=== PATIENT | male | born 1980 | race Caucasian/White ===

== ENCOUNTER 2020-03-08 01:41 | Emergency (ER) | payer MEDICAID, SELFPAY ==
[2020-03-08 02:15] VITALS: BP 114/69; PULSE 98; RESP 20; O2SAT 93; BMI 25.0
--- NOTE | 2020-03-08 02:40 | PC.NURSE ---
PT AMBULATORY WITH STEADY GAIT, BBS CLEAR AND EQUAL. PT IN NO DISTRESS, UNABLE TO SIT STILL. PT ADMITS TO DAILY OPIATE USE AND THINKS THERE WAS SOMETHING IN THE CRACK HE SMOKED.
[2020-03-08 02:46] LABS: Amphetamine Screen Urine Not Detected (Not Detect); Barbiturates, Urine Not Detected (Not Detect); Benzodiazepines Screen Urine Not Detected (Not Detect); Cannabinoid Screen Urine Not Detected (Not Detect); Cocaine Screen Urine POSITIVE (Not Detect); Opiate Screen Urine POSITIVE (Not Detect); Phencyclidine Screen Urine Not Detected (Not Detect)
--- NOTE | 2020-03-08 02:50 | PC.NURSE ---
PT ASKING TO LEAVE, WALKED OVER TO SECURITY OFFICE LOOKING FOR CLOTHES. PT REFUSING EKG.
--- NOTE | 2020-03-09 03:26 | ED.SOB ---
HPI - SOB/Dyspnea General Chief Complaint: Dyspnea Stated Complaint: Sob Time Seen by Provider: 03/08/20 02:34 Source: patient and EMS Mode of arrival: EMS History of Present Illness HPI Narrative: This is a 40-year-old male who smoked crack approximately 3 hours ago but then woke up complaining of being short of breath which prompted the father to call EMS. Patient denies any recent fevers, chills, recent travel, chest pain /palpitations but states he has a sensation that he cannot get enough air. Related Data Allergies Allergy/AdvReac Type Severity Reaction Status Date / Time No Known Allergies Allergy Verified 03/08/20 02:21 [No Known Allergies*] Review of Systems Review of Systems: pertinent positives and negatives as stated in HPI 10 point review systems is otherwise negative. [facility] Past Medical History Source: nursing notes reviewed Medical History Asthma Social History Social History Advance Directives: No Physical Exam Vital Signs: Vital Signs: Body Mass Index 25.0 VITAL SIGNS: Reviewed. PHYSICAL EXAM NOT COMPLETED DUE TO PATIENT REQUESTING TO LEAVE Course Course Course Narrative: this is a 40-year-old male with history and clinical presentation consistent with possible asthma exacerbation but doubt PE or cardiac ischemia. Unfortunately, patient requested to leave against medical advice despite attempts made to encourage compliance with further workup given his symptoms in combination with review of vital signs which showed an SpO2 of 93%. MDM - SOB/Dyspnea Lab Data Labs: Lab Results 03/08/20 Range/Units 02:24 Urine Opiates Screen POSITIVE H (Not Detect) Ur Barbiturates Screen Not Detected (Not Detect) Ur Phencyclidine Scrn Not Detected (Not Detect) Ur Amphetamines Screen Not Detected (Not Detect) U Benzodiazepines Scrn Not Detected (Not Detect) Urine Cocaine Screen POSITIVE H (Not Detect) U Marijuana (THC) Screen Not Detected (Not Detect) Discharge Plan Discharge Clinical Impression: Breath shortness Patient Disposition: Left Against Medical Advice Instructions: Polysubstance Abuse (ED) Additional Instructions: The patient and/or family acknowledge understanding of results (as applicable), diagnosis, treatment plan, need for follow up, and symptoms that should prompt a return to the emergency room. Please do not hesitate to return at any time for evaluation. Referrals: Physician,Unknown [Primary Care Provider] - 2 days Discharge Date/Time: 03/08/20 02:51
== END 2020-03-08 02:51 | disposition left against medical advice (07) ==
PROVIDERS: Emergency Provider Student in an Organized Health Care Education/Training Program
DX: R06.02 Shortness of breath (principal); F19.10 Other psychoactive substance abuse, uncomplicated; J45.909 Unspecified asthma, uncomplicated
CPT/HCPCS: 80307; 99282; 99283

== ENCOUNTER 2020-11-01 18:10 | Emergency (ER) | payer MEDICAID, SELFPAY ==
--- NOTE | ~2020-11-01 | XR_ITS ---
EXAMINATION: XR CHEST CLINICAL INFORMATION: Shortness of breath COMPARISON: None TECHNIQUE: 2 views of the chest were obtained. FINDINGS: No significant abnormality is noted involving the heart, lungs, mediastinum, bony thorax or soft tissues. XR/XR chest 2V IMPRESSION: No acute pulmonary disease.
[2020-11-01 18:31] VITALS: BP 134/84; BP 147/80; PULSE 85; PULSE 90; RESP 16; TEMP 36.7; O2SAT 95; BMI 25.8
--- NOTE | 2020-11-01 18:33 | ECG_ITS ---
Test Reason : CP Blood Pressure : / mmHG Vent. Rate : 088 BPM Atrial Rate : 088 BPM P-R Int : 190 ms QRS Dur : 098 ms QT Int : 386 ms P-R-T Axes : 073 071 062 degrees QTc Int : 467 ms Normal sinus rhythm Possible Left atrial enlargement Borderline ECG When compared with ECG of 07-FEB-2019 03:30, Nonspecific T wave abnormality no longer evident in Lateral leads Referred By: Jelly Russo Electronically Signed By:ALFRED BRITO MD
--- NOTE | 2020-11-01 18:33 | ED.OVERDOSE ---
HPI - Overdose General Chief Complaint: ETOH/Substance Use Stated Complaint: drug use, cp Source: patient and EMS Mode of arrival: EMS Limitations: no limitations History of Present Illness HPI Narrative: 40-year-old male presents via EMS for overdose. States that he has been using alcohol cocaine, heroin, and marijuana on regular basis. He is requesting detox. He did not require Narcan in the field. He does state to have some chest pain which he feels is related to his cocaine use. MD complaint: accidental overdose Onset (ago): hour(s) (Within the hour of arrival) Timing confirmed by: other Context: Accidental Overdose: wanted to get high Treatments Prior to Arrival: none Related Data Allergies Allergy/AdvReac Type Severity Reaction Status Date / Time No Known Allergies Allergy Verified 03/08/20 02:21 [No Known Allergies*] Review of Systems Review of Systems: Constitutional: No Fever, No Chills ENT/Mouth: No sore throat, No Rhinorrhea Eyes: No Eye Pain, No Swelling, No Redness Cardiovascular: No Chest Pain, No SOB Respiratory: No Cough, No Sputum Gastrointestinal: No Nausea, No Vomiting, No Diarrhea, No abdominal Pain Genitourinary: No Dysuria, No Hematuria Musculoskeletal: No joint pain, No Myalgias, No Joint Swelling Skin: No Skin Lesions, No rash Neuro: No Weakness, No Numbness, No Loss of Consciousness, No Dizziness, No Headache Psych: Positive polysubstance abuse, No Anxiety, No Depression, No SI/HI/AH/VH Heme/Lymph: No Bruising, No Bleeding,No Lymphadenopathy Endocrine: No Polyuria, No Polydipsia Yes all other systems are reviewed and are negative [facility] Past Medical History Attestation statement: The following information was validated with the patient. Source: old records reviewed Medical History Asthma Substance abuse Social History Social History Alcohol intake: current Patient Tobacco Use Status: Current everyday Tobacco user Use of substances other than those prescribed or required for medical reasons: Yes Substance Use Type: Crack/Cocaine, Heroin and Marijuana Advance Directives: No Advance Directives Information Provided: No Physical Exam Vital Signs: Vital Signs: Last Vital Signs Temp 98.0 F 11/01/20 18:31 Pulse 86 11/01/20 21:44 Resp 16 11/01/20 21:44 BP 134/78 11/01/20 21:44 Pulse Ox 98 11/01/20 21:44 Body Mass Index 25.8 Appearance: Alert. Oriented X3. No acute distress. Eyes: Pupils equal, round and reactive to light. ENT: Pharynx normal. Neck: Normal inspection. Neck supple. CVS: Normal heart rate and rhythm. Pulses normal. Respiratory: No respiratory distress. Breath sounds normal. Abdomen: Soft and nontender. Skin: Skin warm and dry. Normal skin color. Normal skin turgor. Extremities: No lower extremity edema. Neuro: No motor deficit. No sensory deficit. Course Course Course Narrative: 40-year-old male presents via EMS for overdose on cocaine, heroin, and alcohol use. States that he is looking for detox, did not require Narcan in the field. Patient is alert oriented x4, answering questions politely and appropriately, appears to be apologetic and remorseful. Will order lab values, D , and EKG. EKG is normal sinus. No indication of ST elevation or depression, no need for troponins at this time. Did give Ativan 2 mg for withdrawal symptoms. Chest x-rays negative for acute findings requiring emergent intervention. 9:29 p.m., detox bed found, patient willing to go. Discharge to detox. MDM - Overdose Differential Diagnosis Differential diagnosis: Likely cocaine intoxication and drug overdose Medical Records Attestation: I reviewed the patient's medical records. Lab Data Attestation: I reviewed the patient's lab results. Labs: Lab Results 11/01/20 Range/Units 18:40 Urine Opiates Screen POSITIVE H (Not Detect) Ur Barbiturates Screen Not Detected (Not Detect) Ur Phencyclidine Scrn Not Detected (Not Detect) Ur Amphetamines Screen Not Detected (Not Detect) U Benzodiazepines Scrn Not Detected (Not Detect) Urine Cocaine Screen POSITIVE H (Not Detect) U Marijuana (THC) Screen Not Detected (Not Detect) Imaging Data Chest x-ray: Attestation: I personally reviewed and interpreted this imaging study as follows: Radiologist's impression: EXAMINATION: XR CHEST CLINICAL INFORMATION: Shortness of breath COMPARISON: None TECHNIQUE: 2 views of the chest were obtained. FINDINGS: No significant abnormality is noted involving the heart, lungs, mediastinum, bony thorax or soft tissues. XR/XR chest 2V IMPRESSION: No acute pulmonary disease. ECG Data Attestation: I personally reviewed and interpreted this ECG as follows: ECG interpretation date: 11/01/20 ECG interpretation time: 18:49 Interpretation: Vent. rate 88 BPM WV interval 190 ms QRS duration 98 ms QT/QTc 386/467 ms P-R-T axes 73 71 62 Normal sinus rhythm Possible Left atrial enlargement Borderline ECG When compared with ECG of 07-FEB-2019 03:30, Nonspecific T wave abnormality no longer evident in Lateral leads Discharge Plan Discharge Clinical Impression: Polysubstance abuse Patient Disposition: Home, Self-Care Instructions: Polysubstance Abuse (ED) Additional Instructions: Thank you for considering detox. The recovery advocate is found placement for you tonight. Thank you for choosing this emergency department for evaluation. Please follow-up with primary care physician as needed. Return to the emergency department for any new, concerning, or worsening symptoms. Interventions: ED Discharge Assessment Last Done: 11/01/20 21:35 Discharge Date/Time: 11/01/20 21:58
[2020-11-01] MEDS: LORazepam 1 MG TABLET 2 MG PO (18:58)
[2020-11-01 19:21] LABS: Amphetamine Screen Urine Not Detected (Not Detect); Barbiturates, Urine Not Detected (Not Detect); Benzodiazepines Screen Urine Not Detected (Not Detect); Cannabinoid Screen Urine Not Detected (Not Detect); Cocaine Screen Urine POSITIVE (Not Detect); Opiate Screen Urine POSITIVE (Not Detect); Phencyclidine Screen Urine Not Detected (Not Detect)
[2020-11-01 21:44] VITALS: BP 134/78; PULSE 86; RESP 16; O2SAT 98
== END 2020-11-01 21:58 | disposition home or self-care (01) ==
PROVIDERS: Nurse Practitioner Family; Emergency Provider Internal Medicine
DX: F14.10 Cocaine abuse, uncomplicated (principal); F11.10 Opioid abuse, uncomplicated; F12.10 Cannabis abuse, uncomplicated; R07.9 Chest pain, unspecified
CPT/HCPCS: 71046; 80307; 93005; 99285

== ENCOUNTER 2020-12-09 01:30 | Emergency (ER) | payer MEDICAID, SELFPAY ==
[2020-12-09] VITALS (8 sets, daily range): BP systolic 98–130; BP diastolic 64–80; PULSE 75–110; RESP 12–22; TEMP 37; O2SAT 91–97; BMI 53.7
--- NOTE | 2020-12-09 01:45 | ED.GENADULT ---
HPI - General Adult General Chief complaint: ETOH/Substance Use Stated complaint: SOB AND CHEST PAIN AFTER DRUG USE Time Seen by Provider: 12/09/20 01:43 Source: patient Mode of arrival: EMS History of Present Illness HPI narrative: 40-year-old male brought in by EMS after reportedly smoking crack cocaine all weekend and stating he has not slept in 4 days. In addition, he states that he used drugs just prior to arrival. Otherwise, he denies any shortness of breath, chest pain/palpitations. Related Data Allergies Allergy/AdvReac Type Severity Reaction Status Date / Time No Known Allergies Allergy Verified 03/08/20 02:21 [No Known Allergies*] Review of Systems Review of Systems: Pertinent positives and negatives as stated in HPI 10 point review of systems is otherwise negative. PMFSH Past Medical History Source: nursing notes reviewed Medical History Asthma Substance abuse Social History Social History Alcohol intake: current Patient Tobacco Use Status: Current everyday Tobacco user Substance Use Type: Crack/Cocaine, Heroin and Marijuana Advance Directives: No Advance Directives Information Provided: No Physical Exam Vital Signs: Vital Signs: Last Vital Signs Temp 98.6 F 12/09/20 06:52 Pulse 84 12/09/20 06:52 Resp 13 12/09/20 06:52 BP 109/75 12/09/20 06:52 Pulse Ox 91 L 12/09/20 06:52 Body Mass Index 53.7 VITAL SIGNS: Reviewed. GENERAL: Well developed, well nourished, patient is twitching and moving back and forth, grunting HEAD: Normocephalic/atraumatic EYES: PERRLA, EOMI EARS: Ext canals without abnormality OROPHARYNX: no oral lesions noted, posterior pharynx clear NECK: Supple, no adenopathy LUNGS: Normal breath sounds. No adventitious sounds or accessory muscle use. SpO2<97> CARDIOVASCULAR: Regular rate and rhythm without noted murmurs ABDOMEN: Soft, non-tender, non-distended with bowel sounds. SKIN: Inspection of the skin reveals no rashes NEUROLOGIC: Alert and oriented x 3. Strength and sensation to light touch were grossly intact x 4. Course Course Course Narrative: 40-year-old male with history and clinical presents in view consistent with substance use, suspect some component of PCP. Patient requesting something to help calm him and was provided Ativan with good results. Patient continues to rest comfortably with intermittent episodes/outbursts, but on questioning will answer. Sign-out given to Dr Elizondo. Reevaluation(s) Reevaluation #1: Patient placed in physician observation because the patient needed time to become sober. At the time observation was started the patient's vital signs were stable, patient is intoxicated and now resting comfortably, neuro: Nonfocal, CV RRR, lungs clear Time: 04:43 Medical Decision Making ECG Data Attestation: I personally reviewed and interpreted this ECG as follows: Prior ECG tracings: available for review (11/01/2020 no acute changes on comparison) Interpretation: Number sinus rhythm, HR -98, no STEMI, AL/QRS/QTC. Discharge Plan Discharge Clinical Impression: Substance abuse Patient Disposition: Home, Self-Care Instructions: Polysubstance Abuse (ED) Additional Instructions: Return to the ER for acute worsening of symptoms.
[2020-12-09] MEDS: LORazepam 2 MG/ML VIAL IVPUSH (01:57)
--- NOTE | 2020-12-09 02:02 | PC.NURSE ---
PATIENT THRASHING AROUND ON STRETCHER, ARMS AND LEGS FLAILING, PATIENT REPORTING HE CAN'T CONTROL HIS BODY AFTER SMOKING TO MUCH CRACK COCAINE. PROVIDER GIVING THIS RN VERBAL ORDERS FOR ATIAN IV. PATIENT ASKING FOR MEDICATION TO STOP THE TWITCHING AND SPASMS HE CALLS THEM. PATIENT HAVING AN END TO THE TWITCHING MOVEMENTS ABOUT 5 MINUTES AFTER MEDICATION ADMINISTRATION.
--- NOTE | 2020-12-09 02:23 | PC.NURSE ---
EKG was done at 0219 on patient
--- NOTE | 2020-12-09 04:47 | ECG_ITS ---
Test Reason : DRUG USE Blood Pressure : / mmHG Vent. Rate : 098 BPM Atrial Rate : 098 BPM P-R Int : 194 ms QRS Dur : 098 ms QT Int : 376 ms P-R-T Axes : 079 084 069 degrees QTc Int : 480 ms Normal sinus rhythm Prolonged QT Abnormal ECG When compared with ECG of 01-NOV-2020 18:49, No significant change was found Referred By: Rose Bustos Electronically Signed By:ALFRED BRITO MD
--- NOTE | 2020-12-09 13:03 | PC.NURSE ---
Patient requesting detox, aware. Detox counselor to see patient.
== END 2020-12-09 16:17 | disposition home or self-care (01) ==
PROVIDERS: Emergency Provider Emergency Medicine
DX: F14.10 Cocaine abuse, uncomplicated (principal)
CPT/HCPCS: 93005; 96374; 99284; J2060

== ENCOUNTER → 2024-07-02 09:04 | Outpatient (BNVA) | payer OTHER, SELFPAY | PROVIDERS: Visit Provider Physician Assistant Medical | DX: S39.012A Strain of muscle, fascia and tendon of lower back, initial encounter (principal); X50.1XXA Overexertion from prolonged static or awkward postures, initial encounter; Y93.H1 Activity, digging, shoveling and raking | CPT/HCPCS: 99203; J1885 ==

== ENCOUNTER → 2024-07-05 12:56 | Outpatient (BNVA) | payer OTHER, SELFPAY | PROVIDERS: Visit Provider Physician Assistant Medical | DX: S39.012A Strain of muscle, fascia and tendon of lower back, initial encounter (principal); X50.1XXA Overexertion from prolonged static or awkward postures, initial encounter | CPT/HCPCS: 99213 ==

== ENCOUNTER → 2024-07-12 12:43 | Outpatient (BNVA) | payer OTHER, SELFPAY | PROVIDERS: Visit Provider Physician Assistant Medical | DX: S39.012A Strain of muscle, fascia and tendon of lower back, initial encounter (principal); X50.1XXA Overexertion from prolonged static or awkward postures, initial encounter | CPT/HCPCS: 72110; 99214 ==

== ENCOUNTER 2024-10-02 08:11 | Emergency (ER) | payer MEDICAID, SELFPAY ==
[2024-10-02 08:33] VITALS: BP 132/81; PULSE 105; RESP 18; TEMP 36.8; O2SAT 97; BMI 25.8
--- NOTE | 2024-10-02 08:57 | ED_ITS ---
HPI - Extremity Problem General Chief complaint: Extremity Injury, Upper Stated complaint: Infection R hand/arm Time Seen by Provider: 10/02/24 08:53 Source: patient Mode of arrival: ambulatory Limitations: no limitations History of Present Illness ED Provider: Tawanna Durand PA-C HPI Narrative: 44 yo male presenting to the ER for evaluation of right hand swelling and infection that has been worsening for the last 1 week. He states he got a scrape on the top of his right hand from shoving his hang under a couch looking for something last week. it was a small cut and never healed. He states 2 days ago he was cleaning his crack pipe he accidentally punctured his index finger. He reports the last 2 days his entire hand, including thumb, index and middle fingers have gotten more swollen and painful. The redness and warmth have been traveling up his forearm. He has severe pain when the hand is held down and he needs to hold it up in the air. He reports limited ROM of the index finger due to swelling and pain. He denies fever or chills. He denies IVDA and states he smokes crack daily. He occasionally sniffs dope but never injects. Complaint: extremity pain, extremity swelling, joint swelling and joint pain Onset (ago): day(s) Pain Consistency: constant Location: right and upper extremity Severity scale (1-10): 10 Quality: stabbing and aching Radiation: proximal Relieving factors: elevation Exacerbating factors: range of motion and palpation Associated symptoms: myalgias and arthralgias Related Data Previous Rx's ?Medication ?Instructions ?Recorded cyclobenzaprine 10 mg tablet 10 mg PO BEDTIME PRN muscle spasm 07/02/24 #10 tabs indomethacin 50 mg capsule 50 mg PO BID #60 caps 07/12/24 Allergies Allergy/AdvReac Type Severity Reaction Status Date / Time No Known Allergies Allergy Verified 10/02/24 08:35 [No Known Allergies*] Review of Systems 2 Review of Systems: Yes all other systems are reviewed and are negative [facility] Past Medical History Medical History Asthma Substance abuse Social History Social History Alcohol intake: current Patient Tobacco Use Status: Current everyday Tobacco user Smoked in Last 30 Days: Yes Use of substances other than those prescribed or required for medical reasons: Yes Substance Use Type: Crack/Cocaine Advance Directives: No Advance Directives Information Provided: Yes Physical Exam 2 Vital Signs: Vital Signs: Last Vital Signs Temp 98.2 F 10/02/24 08:33 Pulse 105 H 10/02/24 08:33 Resp 18 10/02/24 08:33 BP 132/81 10/02/24 08:33 Pulse Ox 97 10/02/24 08:33 O2 Del Method Room Air 10/02/24 08:33 BMI result Body Mass Index 25.8 Appearance: Alert. Oriented X3. No acute distress. Restless, anxious Head: normocephalic, atraumatic. Eyes: Pupils equal, round and reactive to light. ENT: Pharynx normal. No tonsillar swelling or exudate. Neck: Normal inspection. Neck supple. CVS: Normal heart rate and rhythm. Pulses normal. Respiratory: No respiratory distress. Breath sounds normal. Abdomen: Soft and nontender. +BS x4 Skin: Skin warm and dry. Normal skin color. Normal skin turgor. No rashes. Extremities: right hand with marked swelling, erythema and warmth or the dorsal aspect with 1.5 irregularly shaped superficial abrasion proximal to the 3rd MCP, over the 3rd MCP and over the PIP of the 2nd digit. 2nd digit sausage digit held in passive partial flexion unable to fully extend or flex. warmth and erythema extend to the mid right forearm on the dorsal aspect. upper arm with a red streak. 2+ radial pulses bilaterally. Neuro/psych: Oriented X 3. No motor deficit. No sensory deficit. CN II-XII intact. Normal speech and cognition. Medical Decision Making Medical Decision Making MDM Narrative: 44-year-old male with history of crack cocaine use, reportedly never intravenously presenting to the ER for evaluation of right hand infection that has been worsening for the last 2 days. Initial wound was 1 week ago reportedly from [place] under a couch. Admits to accidentally stabbing himself in the right index finger while cleaning his crack pipe. Exam is concerning for tenosynovitis or deeper infection with diffuse cellulitis of the entire hand and erythema and warmth radiating up the forearm. There also is concern for lymphangitic spread with a red streak in his right upper arm. He is slightly tachycardic on arrival. Lab workup showing white blood cell count of 17.8. Ordered for vanco and Rocephin for broad coverage, concern for possible MRSA. Patient's belongings went to be search by security and he adamantly refused. He states he needs to bring his belongings to a friend and then is going to come back to the hospital. He is going to leave against medical advice. it was explained to the patient that he needs to be admitted for IV antibiotics, possible surgical intervention or else he runs the risk of worsening infection, sepsis, debility, loss of limb or potential . Patient expressed understanding states he will come back to the hospital once his belongings are taken care of. Differential Diagnosis Differential Diagnoses: The differential diagnosis associated with the presentation includes tenosynovitis, osteomyelitis, cellulitis, abscess Admission/Observation Consideration of admission/observation: Escalation of care including admission/observation considered Lab Data MDM Lab Attestation statement: I reviewed the patient's lab results. Leukocytosis, anemia 10/02/24 09:24 10/02/24 09:24 Labs: Lab Results 10/02/24 Range/Units 09:24 WBC 17.8 H (4.8-10.8) X10*3/uL RBC 4.10 L (4.60-5.80) X10*6/uL Hgb 13.0 L (14.0-18.0) g/dl Hct 36.9 L (42.0-52.0) % MCV 90.0 (80.0-98.0) fL MCH 31.7 (27.0-33.0) pg MCHC 35.2 (31.0-36.0) g/dl RDW 12.4 (11.0-16.0) % Plt Count 191 (160-400) X10*3/uL MPV 10.2 (9.4-12.4) fL Immature Gran % (Auto) 0.5 H (0.0-0.4) % Neut % (Auto) 78.9 H (45-73) % Lymph % (Auto) 14.4 L (20-40) % Twiggs % (Auto) 5.8 (2-11) % Eos % (Auto) 0.2 (0-4) % Baso % (Auto) 0.2 (0-2) % Lymph # (Auto) 2.6 (1.2-4.9) X10*3/uL Twiggs # (Auto) 1.0 (0.1-1.2) X10*3/uL Eos # (Auto) 0.0 (0.0-0.4) X10*3/uL Baso # (Auto) 0.0 (0.0-0.2) X10*3/uL Abs Immat Gran (auto) 0.09 H (0.00-0.03) X10*3/uL Absolute Neuts (auto) 14.1 H (2.0-8.3) x10*3/uL Absolute Nucleated RBC 0.000 (0.0-0.012) X10*3/uL Nucleated RBC % (auto) 0.0 (0.0-0.2) /100WBC External Record Review External record reviewed: Outpatient record, Prior outpatient labs and Prior outpatient radiology Prescription Management I considered prescription management with: Pain Medication and Antibiotic Chronic Conditions Patient?s care impacted by: Other (chronic drug use) Social Determinants Patient?s care significantly limited by Social Determinants of Health including: Alcoholism and drug addiction in family and Other Social Determinant of Health Discharge Plan Discharge Clinical Impression: Tenosynovitis Cellulitis Qualifiers: Site of cellulitis: extremity Site of cellulitis of extremity: upper extremity Laterality: right Qualified Code(s): L03.113 - Cellulitis of right upper limb Patient Disposition: Left Against Medical Advice Prescriptions: No Action cyclobenzaprine 10 mg tablet 10 mg PO BEDTIME PRN (Reason: muscle spasm) Qty: 10 0RF indomethacin 50 mg capsule 50 mg PO BID Qty: 60 3RF Rx Instructions: administer with food or milk Stand Alone Forms: Against Medical Advice Print Language: Kazakh
--- OUTSIDE RECORDS SUMMARY | 2024-10-02 09:20 | XMS_ITS | Patient Health Record ---
Author Organization [facility] Address [address] [place], [place] [id number] Care Team Providers Care Dialysis Patient Care Technician Name Role Phone No, PCP Primary Care Provider Luh Solorio Unavailable [phone] Reason For Referral No Information Social History Sex Assigned At : Social History Observation Description Sex Assigned At Male Encounters Encounter Location Date Provider Diagnosis [facility] [address], [place] [phone] 07/13/2024 Luh Farrell Plan Of Treatment No Information Insurance Providers Payer Name Payer Address Payer Phone Subscriber Number Group Number Insured Name Patient Relationship to Insured Coverage Start Date Coverage End Date Insurance Pending [address] [place] [id number] Jose Kaminski Self - patient is the insured
[2024-10-02 09:31] LABS: MANUAL DIFF FLAG NO
[2024-10-02 09:33] LABS: Basophils Percent Auto 0.2 % (0-2); Eosinophils Percent Auto 0.2 % (0-4); Hematocrit 36.9 % (42.0-52.0); Imm Gran Abs Auto 0.09 X10*3/uL (0.00-0.03); Imm Gran Pct Auto 0.5 % (0.0-0.4); Lymphocytes Absolute Auto 2.6 X10*3/uL (1.2-4.9); Lymphocytes Percent Auto 14.4 % (20-40); Mean Corpuscular HGB Conc 35.2 g/dl (31.0-36.0); Mean Corpuscular Hemoglobin 31.7 pg (27.0-33.0); Mean Platelet Volume 10.2 fL (9.4-12.4); Monocytes Percent Auto 5.8 % (2-11); Neutrophils Absolute Auto 14.1 x10*3/uL (2.0-8.3); Neutrophils Percent Auto 78.9 % (45-73); Platelet Count 191 X10*3/uL (160-400); Red Cell Distribution Width 12.4 % (11.0-16.0); White Blood Count 17.8 X10*3/uL (4.8-10.8)
--- NOTE | 2024-10-02 09:41 | PC.NURSE ---
patient a&ox3, pt was unable to sit still in room, labs drawn, iv inserted, this nurse spoke with security to do a safety search of the patient as he admitted to IV drug use- security was at bedside to go through the patients bag/belongings and pt got defensive admitting that he has stuff in his bag and that he wanted to discharge if we had to take his bag. Attempts to convince patient to stay with the provider and security was not successful. Patient states he understands he can lose his hand if he doesnt get treatment, pt said he didnt think he would need to get admitted so he will bring his bag and belongings to his brothers house and he would come back for treatment. Patient had 10/10 pain, rt had/forearm had 4+ edema, red/hot to touch. Pharmacy was called to return the bag of vanco to the fridge that had been removed. IV was removed from LT AC and pt is leaving against medical advice.
[2024-10-02 09:46] LABS: Appearance Urine Clear; Color Urine Dark Yellow; Glucose Urine UA Negative (Negative); Leukocyte Esterase Urine Negative (Negative); Nitrite Urine Negative (Negative); Specific Gravity - Urine >= 1.030 (1.005-1.025); UMIC TRIGGER UACC YES; Urine Blood Negative (Negative); Urine Ketones 15 mg/dL (Negative); Urine Protein 100 (2+) mg/dL (Neg-Trace)
[2024-10-02 09:48] VITALS: BP 132/81; PULSE 105; RESP 18; TEMP 36.8; O2SAT 97
[2024-10-02 09:53] LABS: Lactic Acid 1.8 mmol/L (0.5-2.0)
[2024-10-02 09:54] LABS: Bacteria Urine None Seen (None Seen); Hyaline Casts Urine 0-2 /LPF (0-2); RBC Urine 0-2 /HPF (0-2); Squamous Epithelial Cell Urine 0-2 /HPF (0-2); WBC Urine 0-5 /HPF (0-5)
[2024-10-02 10:13] LABS: Amphetamine Screen Urine Not Detected (Not Detect); Barbiturates, Urine Not Detected (Not Detect); Benzodiazepines Screen Urine POSITIVE (Not Detect); Buprenorphine Scr Not Detected (Not Detect); Cannabinoid Screen Urine POSITIVE (Not Detect); Cocaine Screen Urine POSITIVE (Not Detect); Fentanyl, urine POSITIVE (Not Detect); Methadone Screen, Urine Not Detected (Not Detect); Opiate Screen Urine POSITIVE (Not Detect); Oxycodone Screen Urine Not Detected (Not Detect); Phencyclidine Screen Urine Not Detected (Not Detect)
[2024-10-02 10:15] LABS: Erythrocyte Sedimentation Rate 38 MM/HR (0-15); Ethanol < 10 mg/dL
[2024-10-02 10:28] LABS: Alanine Aminotransferase 20 U/L (0-40); Albumin Level 4.2 g/dL (3.5-5.0); Aspartate Amino Transferase 25 U/L (5-37); Bilirubin Direct 0.2 mg/dL (0.0-0.5); Bilirubin Total 0.6 mg/dL (0.0-1.0); Blood Urea Nitrogen 17 mg/dL (9-16); Creatinine Clr Calc Pharmacy 100.2; Estimated Glomerular Filt Rate > 60; Glucose Random 144 mg/dL (60-115); Magnesium 2.1 mg/dL (1.6-2.6); Total Protein 7.5 g/dL (6.5-8.0)
[2024-10-02 10:42] LABS: Anion Gap 14 (12-20); Carbon Dioxide 26 mmol/L (22-29); Chloride 96 mmol/L (96-108); Potassium 3.1 mmol/L (3.3-5.1); Sodium 133 mmol/L (135-145)
[2024-10-02 12:53] LABS: Alkaline Phosphatase 72 U/L (39-117)
== END 2024-10-02 09:52 | disposition left against medical advice (07) ==
PROVIDERS: Physician Assistant; Emergency Provider Emergency Medicine
DX: L03.113 Cellulitis of right upper limb (principal); M79.89 Other specified soft tissue disorders; M79.641 Pain in right hand; R00.0 Tachycardia, unspecified; M79.10 Myalgia, unspecified site; F19.10 Other psychoactive substance abuse, uncomplicated; F17.210 Nicotine dependence, cigarettes, uncomplicated; J45.909 Unspecified asthma, uncomplicated; Z53.29 Procedure and treatment not carried out because of patient's decision for other reasons; Z79.899 Other long term (current) drug therapy
CPT/HCPCS: 36415; 80048; 80076; 80307; 81001; 83605; 83735; 85025; 85652; 86140; 87040; 99284

== ENCOUNTER 2024-10-02 22:52 | Inpatient (IN) | payer MEDICAID, SELFPAY ==
--- NOTE | ~2024-10-02 | CT_ITS ---
CLINICAL HISTORY: r o tenosenovytis, IVDU pain, swelling Exam: CT of the right forearm with intravenous contrast. Comparison: None. Findings: Bony alignment of the radius and ulna is anatomic. No fracture or periosteal reaction. No joint effusion at the elbow. No periosteal reaction. Soft tissue induration is seen along the posterior aspect of the elbow in the expected location of the olecranon bursa. Induration is seen within the subcutaneous fat over the radial aspect of the forearm, especially along the mid forearm. No definitive muscle involvement is seen. Diffuse induration within the soft tissues of the dorsal aspect of the wrist, likely involving the extensor tendons. No definitive fluid collection seen within the deep palmar space. Impression: 1. No fracture. 2. Nonspecific induration within the subcutaneous fat of the dorsal aspect of the elbow. This is also seen along the mid to distal aspect of the forearm extending into the wrist. This is nonspecific and suboptimally evaluated with CT scan. MRI with intravenous contrast is considered the imaging modality of choice. Given this limitation, the findings suggest the possibility of tenosynovitis of the extensor tendons at the level of the wrist. This document has been electronically signed by: Gumaro Lee MD on 10/03/2024 02:38:18
[2024-10-02 23:07] VITALS: BP 127/73; PULSE 107; RESP 22; TEMP 37; O2SAT 96; BMI 25.1
--- NOTE | 2024-10-02 23:22 | ED.EXTPRO ---
HPI - Extremity Problem General Chief complaint: Extremity Injury, Upper Stated complaint: infection on right arm was here this morning Time Seen by Provider: 10/02/24 23:13 Source: patient Mode of arrival: ambulatory Limitations: no limitations History of Present Illness ED Provider: Dr. Lana Clarke HPI Narrative: Patient comes to emergency room complaining of an infection in his right hand. Earlier today, patient was seen here in the emergency room. Admission was Suggested and encouraged, but patient refused to be admitted. According to the patient, he admits that he had illicit drugs with him and left the hospital to dispose of them and then came back to the ED knowing that he would get admitted. patient denies fever chills. Patient admits that he uses drugs but never IV. Patient states that he has 2 injuries in his right hand, 1 from cleaning a crack pipe and another 1 from getting scraped in the hand with the wood of a sofa/couch. patient admits that he has been using drugs. patient states that this time he will agree to stay throughout the entire length of hospitalization. Related Data Previous Rx's ?Medication ?Instructions ?Recorded cyclobenzaprine 10 mg tablet 10 mg PO BEDTIME PRN muscle spasm 07/02/24 #10 tabs indomethacin 50 mg capsule 50 mg PO BID #60 caps 07/12/24 Allergies Allergy/AdvReac Type Severity Reaction Status Date / Time No Known Allergies Allergy Verified 10/02/24 23:09 [No Known Allergies*] Review of Systems Review of Systems: Constitutional : No Weight loss, No Fever, No Chills, No Night Sweats, No Fatigue, No Malaise ENT/Mouth : No Hearing loss, No Ear Pain, No Nasal Congestion, No Sinus Pain, No Hoarseness, No sore throat, No Rhinorrhea, No Swallowing Difficulty Eyes: No Eye Pain, No Swelling, No Redness, No Foreign Body, No Discharge, No Vision Changes Cardiovascular : No Chest Pain, No SOB, No Dyspnea on Exertion, No Orthopnea, No Edema, No Palpitations Respiratory : No Cough, No Sputum, No Wheezing, No Smoke Exposure, No Dyspnea Gastrointestinal : No Nausea, No Vomiting, No Diarrhea, No Constipation, No abdominal Pain, No Hematochezia, No Melena Genitourinary : no irregular bleeding, No Dysuria, No Urinary Frequency, No Hematuria, No Urinary Incontinence, No Urgency, No Flank Pain, No Urinary Flow Changes, No Hesitancy Musculoskeletal : Complaining of right arm pain swelling an infection. Skin : No Skin Lesions, No rash Neuro : No Weakness, No Numbness, No Paresthesias, No Loss of Consciousness, No Dizziness, No Headache Psych : No Anxiety/Panic, No Depression, No SI/HI/AH/VH, No Social Issues, Heme/Lymph: No Bruising, No Bleeding,No Lymphadenopathy Endocrine : No Polyuria, No Polydipsia, No Temperature Intolerance [facility] Past Medical History Medical History Substance abuse Asthma Social History Social History Alcohol intake: current Patient Tobacco Use Status: Current everyday Tobacco user Substance Use Type: Crack/Cocaine Advance Directives: No Advance Directives Information Provided: Yes Do you have a plan to hurt others: No Plan Physical Exam Vital Signs: Vital Signs: Last Vital Signs Temp 98.6 F 10/02/24 23:07 Pulse 99 10/03/24 01:16 Resp 14 10/03/24 01:16 BP 113/72 10/03/24 01:16 Pulse Ox 93 10/03/24 01:16 O2 Del Method Room Air 10/03/24 01:16 BMI result Body Mass Index 25.1 Const: Other: Appearance: Alert. Oriented X3. No acute distress. Eyes: Pupils equal, round and reactive to light. ENT: Pharynx normal. Neck: Normal inspection. Neck supple. No lymph nodes noted. No crepitus CVS: Normal heart rate and rhythm. Pulses normal. Normal S1 and S2 Respiratory: No respiratory distress. Breath sounds normal. No Wheezing. No rales Abdomen: Soft and nontender. No rigidity. No distention. Skin: Skin warm and dry. Normal skin color. Normal skin turgor. see extremities below Extremities: No lower extremity edema. No Lacerations. patient's right hand is erythematous, swollen, unable to flex or extend the right index finger, pain to palpation throughout the hand palm and wrist Neuro: Oriented X 3. No motor deficit. No sensory deficit. Moving all extremities. No slurred speech. CN 2 through 12 grossly intact Psych: calm, cooperative, normal affect Course Course Course Narrative: patient had lab work done earlier today given patient's physical exam, tenosynovitis is possible. CT scan pending. Patient is clearly under the influence of substances. Patient received initially p.o. Ativan. However, patient is still moving quite a bit, patient will not hold still for CAT scan. Patient received a dose of IM diazepam. patient was given IV Toradol patient was very anxious, thrashing, patient states that he has never had this reaction before with heroin, believes it was lays. Overall, patient needed Geodon, diphenhydramine, IM diazepam Medications Administered Discontinued Medications Generic Name Dose Route Start Last Admin Trade Name Freq PRN Reason Stop Dose Admin Diazepam 2.5 mg 10/03/24 00:08 10/03/24 00:16 Diazepam 10 Mg/2 Ml Cartridge IM 10/03/24 00:09 2.5 mg STAT STA Administration Diphenhydramine HCl 50 mg 10/03/24 00:32 10/03/24 00:48 Diphenhydramine Hcl 50 Mg/Ml Vial IM 10/03/24 00:33 50 mg ONCE ONE Administration Piperacillin Sod/Tazobactam 50 mls @ 100 mls/hr 10/02/24 23:19 10/03/24 01:49 Sod 3.375 gm/ Sodium Chloride IV 10/02/24 23:48 Infused ONCE ONE Infusion Sodium Chloride 1,000 mls @ 999 mls/hr 10/02/24 23:19 10/03/24 01:13 Ns IVCONT 10/03/24 00:19 999 mls/hr .Q1H1M ONE Administration Vancomycin HCl 2,000 mg in 500 mls @ 250 mls/hr 10/02/24 23:45 10/03/24 01:42 Vancomycin/Ns IV 10/03/24 01:44 250 mls/hr ONCE ONE Administration Protocol Iohexol 85 ml 10/03/24 01:42 10/03/24 01:42 Iohexol 350 Mg/Ml 100 Ml Infus..Btl IV 10/03/24 01:43 85 ml ONCE ONE Administration Ketorolac Tromethamine 30 mg 10/03/24 00:16 10/03/24 01:13 Ketorolac Tromethamine 30 Mg/Ml Vial IVPUSH 10/03/24 00:17 30 mg ONCE ONE Administration Lorazepam 2 mg 10/02/24 23:22 10/02/24 23:58 Lorazepam 1 Mg Tablet PO 10/02/24 23:23 2 mg ONCE ONE Administration Ziprasidone 20 mg 10/03/24 00:32 10/03/24 00:46 Ziprasidone Mesylate 20 Mg Vial IM 10/03/24 00:33 20 mg ONCE ONE Administration Medical Decision Making Medical Decision Making MDM Narrative: my interpretation of labs earlier today, patient's white blood cell count 17.8, lactic 1.8 blood pressure stable, no episodes of hypotension, sepsis not suspected CT scan of the right hand to rule out tenosynovitis has been done, radiology report pending I discussed the patient with Dr. Lei, patient being admitted Critical Care Time Critical Care Time Critical Care Time: Yes Total Critical Care Time: 75 Attestation: I have personally provided critical care time. Time includes review of lab data, radiology results, discussion with consultants, and monitoring for potential decompensation. Intervention performed as documented. Discharge Plan Discharge Clinical Impression: Cellulitis of hand, Adverse drug reaction Patient Disposition: Admitted As Inpatient Prescriptions: No Action cyclobenzaprine 10 mg tablet 10 mg PO BEDTIME PRN (Reason: muscle spasm) Qty: 10 0RF indomethacin 50 mg capsule 50 mg PO BID Qty: 60 3RF Rx Instructions: administer with food or milk Print Language: Malaysian
[2024-10-02] MEDS: LORazepam 1 MG TABLET 2 MG PO (23:58)
[2024-10-03] VITALS (7 sets, daily range): BP systolic 110–134; BP diastolic 63–82; PULSE 80–110; RESP 14–22; TEMP 36.7–37.8; O2SAT 93–96; BMI 26.1
--- OUTSIDE RECORDS SUMMARY | 2024-10-03 00:15 | XMS_ITS | Clinical Summary ---
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 Name Role Phone Unavailable Primary Care Provider Unavailabl e Encounters Date Type Department Care Team Description 07/12/2024 Orders Only [facility] External Provider, [facility] from Last 3 Months Social History Tobacco Use Types Packs/Day Years Used Date Smoking Tobacco: Never Assessed Sex and Gender Information Value Date Recorded Sex Assigned at Male 03/22/2022 10:16 AM EDT Legal Sex Male 10:16 AM EDT Gender Identity Male 03/22/2022 10:16 AM EDT Sexual Orientation Straight 03/22/2022 10 :16 AM EDT Plan of Treatment Health Maintenance Due Date Last Done Comments Depression Screening 1981 Lipid Panel 1981 Alcohol/Substance Use Screening 1993 Tobacco Screening 1993 Family Planning (PISQ) 01/03/1996 Hepatitis B Vaccines (1 of 3 - 19+ 3-dose series) 01/03/2000 COVID-19 Vaccine (3 - 2023-2 5 season) 2024 07/10/2020, 06/12/2020 Influenza Vaccine (#1) 2024 03/09/2018 DTaP/Tdap/Td Vaccines (2 - T d or Tdap) 01/12/2030 01/13/2020 Zoster Vaccines (1 of 2) 2031 RSV Patients and Patients Aged 60 years or older (1 - 1-dose 75+ series) 01/03/2056 HIB Vaccines Aged Out No longer eligi ble based on patient's age to complete this topic HPV Vaccines Aged Out No longer eligi ble based on patient's age to complete this topic Hepatitis A Vaccines Aged Out No long er eligible based on patient's age to complete this topic IPV Vaccines Aged Out No longer eligi ble based on patient's age to complete this topic Meningococcal Vaccine Aged Out No cathy madhavi eligible based on patient's age to complete this topic Pneumococcal Vaccine: Pediatrics (0 to 5 Years) and At-Risk Patients (6 to 49) Years) Aged Out No longer eligible b ased on patient's age to complete this topic RSV under 20 months Aged Out No longe r eligible based on patient's age to complete this topic Rotavirus Vaccines Aged Out No longer eligible based on patient's age to complete this topic Procedures Procedure Name Priority Date/Time Associated Diagnosis Comments XR LUMBAR SPINE COMPLETE 4+ VIEWS Routine 07/12/2024 1:17 PM EST from Last 3 Months Results * XR Lumbar Spine Complete 4+ Views (07/12/2024 1:17 PM EST) Anatomical Region Laterality Modality Spine, L-spine Radiographic Estephania ging 07/12/2024 1:17 PM EST Narrative 07/12/2024 1:47 PM EST ? [facility] ?[address] ?[place] [address] ?XRay Report ? Signed ? Patient: GordyJose ?MR#: [id number] ? : 1980 ?Acct:[id number] ? Age/Sex: 44 / M ?ADM Date: 07/12/24 ? Loc: HO.WC ? Attending Dr: Yodit Tavares PA-C ? Ordering Physician: Yodit Tavares PA-C ?? Date of Service: 07/12/24 ?? Procedure(s): XR lumbar spine 4V min ?? Accession Number(s): [id number] ? cc: [facility]; Yodit Tavares PA-C ? EXAMINATION: ?? XR LUMBOSACRAL SPINE ? CLINICAL INFORMATION: ?? strain of muscle, fascia and tendon of lower back ? COMPARISON: ?? None available. ? TECHNIQUE: ?? 5 views of the lumbar spine, inclusive of of bilateral oblique views, ?? were obtained. ? FINDINGS: ?? No scoliosis. Mildly straightened lordosis. No subluxations. ?? The vertebral bodies and posterior elements are normal. Facets are ?? normally aligned. The disc spaces are preserved and the vertebral ?? alignment is normal. ?? The paraspinal soft tissues are normal. ? XR/XR lumbar spine 4V min ?? IMPRESSION: ?? Normal examination. ? Electronically signed by: ??Luciano Enamorado MD ??07/12/2024 01:44 PM EST RP ? Dictated By: ?Luciano Enamorado MD ? Signed By: ?<Electronically signed by Luciano Enamorado MD in OV> ?07/12/24 1344 ? DD/ 1317 ? TD/TT: 07/12/24 1341 ? Cushion Gum Applicator: ? Procedure Note Coleter, Image - 07/13/[address] [address] XRay Report Signed Patient: Cassy Kaminski#: [id number] : 1980Acct:[id number] Age/Sex: 44 / MADM Date: 07/12/24 Loc: . Attending Dr: Yodit Tavares PA-C Ordering Physician: Yodit Tavares PA-C Date of Service: 07/12/24 Procedure(s): XR lumbar spine 4V min Accession Number(s): [id number] cc: [facility]; Yodit Tavares PA-C EXAMINATION: XR LUMBOSACRAL SPINE CLINICAL INFORMATION: strain of muscle, fascia and tendon of lower back COMPARISON: None available. TECHNIQUE: 5 views of the lumbar spine, inclusive of of bilateral oblique views, were obtained. FINDINGS: No scoliosis. Mildly straightened lordosis. No subluxations. The vertebral bodies and posterior elements are normal. Facets are normally aligned. The disc spaces are preserved and the vertebral alignment is normal. The paraspinal soft tissues are normal. XR/XR lumbar spine 4V min IMPRESSION: Normal examination. Electronically signed by: Luciano Enamorado MD 07/12/2024 01:44 PM [facility] Dictated By: Luciano Enamorado MD Signed By: <Electronically signed by Luciano Enamorado MD in OV> 07/12/24 1344 DD/ 1317 TD/TT: 07/12/24 1341 Cushion Gum Applicator: us [facility] External Provider IMG XR PROCEDURES Edited Result - Final from Last 3 Months
[2024-10-03] MEDS: diazePAM 10 MG/2 ML CARTRIDGE 2.5 MG IM (00:16)
[2024-10-03] MEDS: Ziprasidone Mesylate 20 MG VIAL IM (00:46)
[2024-10-03] MEDS: diphenhydrAMINE HCL 50 MG/ML VIAL IM (00:48)
--- NOTE | 2024-10-03 00:57 | PC.NURSE ---
Pt unable to stay still for IV insertion, involuntary movements, states he is sorry he can't control it. Pt medicated per JUL.
[2024-10-03] MEDS: Piperacillin Sodium/Tazobactam 3.375 GM in 0.9 % Sodium Chloride 50 ML IV ×4 (01:12→19:37)
[2024-10-03] MEDS: 0.9 % Sodium Chloride 1,000 ML 999 ML IVCONT (01:13)
[2024-10-03] MEDS: Ketorolac Tromethamine 30 MG/ML VIAL IVPUSH (01:13)
--- NOTE | 2024-10-03 01:23 | PC.NURSE ---
pt resting in bed, IV placed by supercharge repair supervisor, abx and fluids running. Pt going to CT.
[2024-10-03] MEDS: iohexoL 350 MG/ML 100 ML INFUS..BTL 85 ML IV (01:42)
[2024-10-03] MEDS: vancomycin/NS 2,000 MG/500 ML PLAST..BAG 250 MG IV (01:42)
--- NOTE | 2024-10-03 02:03 | P.HPHOSP_ITS ---
History of Present Illness Date of Service: 10/03/24 Chief Complaint: Hand infection This has a 44-year-old male with pertinent history of polysubstance use disorder who presents to the emergency department for concerns of hand infection. Patient initially presented on the morning of 10/02 to the ER with concerns of right hand swelling and infection. Patient was offered admission for IV antibiotics but left AMA and returned late night 10/02 to the ER. Unable to obtain history from the patient as he is only eye opening to painful stimulus at the time of my evaluation. Patient received diazepam, Benadryl, Geodon, Ativan prior to my evaluation due to agitation. History obtained from ER provider and chart review. Patient admitted that he had illicit drugs with him and he left the hospital against medical advice to dispose time. Patient denied IV use to the ER provider but admitted to using illicit drugs. He states he injured his right hand from cleaning a crack pipe and getting script in the hand with a piece of wood. Unable to obtain review of systems. In the emergency department, patient was found to have leukocytosis and UDS positive for opiates, fentanyl, cocaine, benzos and marijuana. Review of Systems 2 Review of Systems: Yes Unobtainable due to mental status PMFSH Medical History Substance abuse Asthma Pertinent family history: Unable to obtain Social History Alcohol intake: current Patient Tobacco Use Status: Tobacco use Unknown Smoked in Last 30 Days: Yes Use of substances other than those prescribed or required for medical reasons: Yes Substance Use Type: Crack/Cocaine and Heroin Substance Use Frequency: Chronic Longstanding Last Used Substance: Hours (ago) Advance Directives: No Advance Directives Information Provided: Yes Do you have a plan to hurt others: No Plan Nutrition Risks: No Nutritional Risk Meds Allergies Allergy/AdvReac Type Severity Reaction Status Date / Time No Known Allergies Allergy Verified 10/02/24 23:09 [No Known Allergies*] Active Medications: Current Medications Pharmacy Consult (Consult Rx Vancomycin Dosing) 1 each MISCELLANE DAILY PRN PRN Reason: Consult order Physical Exam 2 Vital Signs and Narrative: Vital Signs: Last Vital Signs Temp 98.6 F 10/02/24 23:07 Pulse 99 10/03/24 01:16 Resp 14 10/03/24 01:16 BP 113/72 10/03/24 01:16 Pulse Ox 93 10/03/24 01:16 O2 Del Method Room Air 10/03/24 01:16 BMI result Body Mass Index 25.1 Middle-aged male lying in bed in no distress Neck supple, no JVD Regular rate and rhythm, S1-S2 heard Regular breath sounds bilaterally, no wheezing or crackles appreciated Abdomen soft nontender, no guarding, no rigidity Patient is drowsy and only eye open sleeve painful stimulus and falls back asleep Psych: Lethargic Right hand with significant diffuse swelling over the dorsum of the right hand with associated erythema, warmth, several smaller scabbed lesions on dorsum of the hand (as pictured below) Skin: Other: Results Labs 10/03/24 02:33 10/03/24 02:33 Assessment and Plan (1) Cellulitis of hand: Status: Acute Plan This has a 44-year-old male with pertinent history of polysubstance use disorder who presents to the emergency department for concerns of hand infection. #. Sepsis due to right hand cellulitis with imaging concerns for tenosynovitis: Will admit patient with IV vancomycin and ceftriaxone. Resuscitated with IV crystalloids. Lactic acid and blood culture obtained. Consulted Orthopedic surgery, appreciate assistance #. Polysubstance use disorder: UDS positive for opiates, fentanyl, cocaine, benzos and marijuana. Consulted Addiction Team #. Acute toxic encephalopathy in the setting of above. Monitor for withdrawals. NPO until mentation improves Med rec pending DVT prophylaxis: Lovenox Full code Admit as inpatient and will require two night minimum hospital stay for IV antibiotics (as above), which is not possible in a lesser acute setting. Quality Stroke Does the patient have a stroke diagnosis?: No VTE Prior VTE?: No VTE Risk Level:: Medical - moderate - high VTE Device Contraindication: Treatment Not Indicated VTE Drug Contraindication: N/A - Med Ordered
[2024-10-03 02:39] LABS: Basophils Percent Auto 0.2 % (0-2); Eosinophils Percent Auto 0.2 % (0-4); Hematocrit 32.3 % (42.0-52.0); Hemoglobin 11.3 g/dl (14.0-18.0); Imm Gran Abs Auto 0.05 X10*3/uL (0.00-0.03); Imm Gran Pct Auto 0.3 % (0.0-0.4); Lymphocytes Absolute Auto 1.9 X10*3/uL (1.2-4.9); Lymphocytes Percent Auto 12.5 % (20-40); MANUAL DIFF FLAG NO; Mean Corpuscular Volume 88.7 fL (80.0-98.0); Mean Platelet Volume 10.1 fL (9.4-12.4); Monocytes Percent Auto 6.8 % (2-11); Neutrophils Absolute Auto 11.9 x10*3/uL (2.0-8.3); Platelet Count 173 X10*3/uL (160-400); Red Blood Count 3.64 X10*6/uL (4.60-5.80); Red Cell Distribution Width 12.1 % (11.0-16.0); White Blood Count 14.9 X10*3/uL (4.8-10.8)
[2024-10-03 02:56] LABS: Lactic Acid 0.6 mmol/L (0.5-2.0)
[2024-10-03 03:13] LABS: Alanine Aminotransferase 16 U/L (0-40); Albumin Level 3.5 g/dL (3.5-5.0); Alkaline Phosphatase 56 U/L (39-117); Anion Gap 14 (12-20); Aspartate Amino Transferase 29 U/L (5-37); Bilirubin Total 0.6 mg/dL (0.0-1.0); Blood Urea Nitrogen 15 mg/dL (9-16); Calcium 8.3 mg/dL (8.4-10.2); Carbon Dioxide 24 mmol/L (22-29); Chloride 99 mmol/L (96-108); Creatinine Clr Calc Pharmacy 110.7; Estimated Glomerular Filt Rate > 60; Glucose Random 112 mg/dL (60-115); Potassium 3.3 mmol/L (3.3-5.1); Sodium 134 mmol/L (135-145); Total Protein 6.4 g/dL (6.5-8.0)
[2024-10-03] MEDS: Lactated Ringers 1,000 ML 999 ML IV (04:55)
--- NOTE | 2024-10-03 07:07 | PHA.PROG ---
Admission Date/Time: October 03, 2024 01:53 Indication: sepsis Weight in k.2 kg Adjusted body weight in Kg: [place] body weight in Kg: Obesity Dosing Indication % IBW: Serum Creatinine - Last 168 Hours 10/03/24 02:33 Creatinine 0.86 Estimated CrCl and GFR - Last 168 Hours 10/03/24 02:33 Estim Creat Clear Calc 110.7 Estimated GFR > 60 Vancomycin Loading Dose: 2000 Current Vancomycin Dosing Regimen: 1250 Q12H Vancomycin Monitoring using AUC goal of 400 - 600 range with trough as surrogate marker: 535 Date and Time for next Vancomycin Level to be drawn: 10/04 @1200 Pharmacist Comments on Vancomycin Plan: Vancomycin dosing will take advantage of [employer] as a clinical decision support tool that uses Bayesian modeling to calculate individual patient's pharmacokinetic parameters and forecast the patient's drug concentration time course with the target goal AUC 24 range of 400 - 600 mg/L/hr.
[2024-10-03] MEDS: 0.9 % Sodium Chloride 1,000 ML 125 ML IVCONT ×2 (08:50→18:00)
[2024-10-03] MEDS: 0.9 % Sodium Chloride Flush 3 ML SYRINGE IVFLUSH (08:50)
--- NOTE | 2024-10-03 09:16 | P.CONOP_ITS ---
History of Present Illness HPI Consult date: 10/03/24 Chief complaint: hand infection Narrative: 44-year-old male admitted to the hospital for dorsal left hand infection In the ED, patient reported that he had 2 separate injuries, 1 from wood of a couch and 1 where he was cleaning his crack pipe and it slipped and stabbed him in the hand Patient left AMA yesterday, but returned Today, patient is noted to be very tired Is arousable, but immediately falls back to sleep during course of interview Patient does respond and reports significant pain to the dorsal hand with all movement No other acute events overnight No other acute complaints or concerns at this time PMFSH Past Medical History Medical History Substance abuse Asthma Social History Social History Household Members Other:: unable to assess Housing Other:: unable to assess Alcohol intake: current Patient Tobacco Use Status: Tobacco use Unknown Smoked in Last 30 Days: Yes Frequency of e-Cigarette/Vaping Use: unable to assess Use of substances other than those prescribed or required for medical reasons: Unable to respond Substance Use Type: Crack/Cocaine and Heroin Substance Use Frequency: Chronic Longstanding Last Used Substance: Hours (ago) Advance Directives: No Advance Directives Information Provided: Yes Do you have a plan to hurt others: No Plan Nutrition Risks: No Nutritional Risk Meds Allergies Allergy/AdvReac Type Severity Reaction Status Date / Time No Known Allergies Allergy Verified 10/02/24 23:09 [No Known Allergies*] Active Medications: Current Medications Acetaminophen (Acetaminophen 325 Mg Tablet) 650 mg PO Q6H PRN PRN Reason: Pain, Mild 1-3,fever,headache Calcium Carbonate (Calcium Carbonate 750 Mg Tab.Chew) 750 mg PO Q4H PRN PRN Reason: Heartburn Enoxaparin Sodium (Enoxaparin Sodium 40 Mg/0.4 Ml Syringe) 40 mg SUBCUT Q24H [facility] Vancomycin HCl 1,250 mg/ (Sodium Chloride) 250 mls @ 166.667 mls/hr IV Q12H [facility] Piperacillin Sod/Tazobactam (Sod 3.375 gm/ Sodium Chloride) 50 mls @ 100 mls/hr IV Q6H [facility] Last Admin: 10/03/24 08:59 Dose: 100 mls/hr Sodium Chloride (Ns) 1,000 mls @ 125 mls/hr IVCONT .Q8H [facility] Last Admin: 10/03/24 08:50 Dose: 125 mls/hr Magnesium Hydroxide (Milk Of Magnesia 30 Ml Oral.Susp) 30 ml PO DAILY PRN PRN Reason: Constipation Melatonin (Melatonin 3 Mg Tablet) 6 mg PO BEDTIME PRN PRN Reason: Insomnia Ondansetron HCl (Ondansetron Hcl 4 Mg/2 Ml Vial) 4 mg IVPUSH Q8H PRN PRN Reason: Nausea and Vomiting Pharmacy Consult (Consult Rx Vancomycin Dosing) 1 each MISCELLANE DAILY PRN PRN Reason: Consult order Sodium Chloride (0.9 % Sodium Chloride Flush 3 Ml Syringe) 3 ml IVFLUSH QSHIFT [facility] Last Admin: 10/03/24 08:50 Dose: 3 ml Physical Exam 2 Vital Signs: Vital Signs: Last Vital Signs Temp 98.3 F 10/03/24 07:43 Pulse 82 10/03/24 07:43 Resp 16 10/03/24 07:43 BP 114/82 10/03/24 07:43 Pulse Ox 94 10/03/24 07:43 O2 Del Method Room Air 10/03/24 07:43 BMI result Body Mass Index 26.1 Extrem: Other: Patient is alert, oriented, and in no acute distress. Vascular: Cap refill brisk Pain: Patient demonstrates significant pain response to gentle palpation throughout the entire dorsal palmar hand and dorsal left index finger ROM: No pain with passive extension of the left index finger Left index finger held in a slight degree of flexion Skin: No lacerations or abrasions. General: Significant erythema noted throughout the dorsal left hand and dorsal left index finger No erythema or edema noted of the volar aspect of the hand or digits Redness that was extending into the forearm last night appears to be resolving well Psych: Appears grossly normal Affect normal Attitude cooperative Results Labs 10/03/24 02:33 10/03/24 02:33 Labs: Abnormal lab results 10/03/24 Range/Units 02:33 WBC 14.9 H (4.8-10.8) X10*3/uL RBC 3.64 L (4.60-5.80) X10*6/uL Hgb 11.3 L (14.0-18.0) g/dl Hct 32.3 L (42.0-52.0) % Neut % (Auto) 80.0 H (45-73) % Lymph % (Auto) 12.5 L (20-40) % Abs Immat Gran (auto) 0.05 H (0.00-0.03) X10*3/uL Absolute Neuts (auto) 11.9 H (2.0-8.3) x10*3/uL Sodium 134 L (135-145) mmol/L Calcium 8.3 L D (8.4-10.2) mg/dL Total Creatine Kinase 930 H (38-174) U/L Total Protein 6.4 L (6.5-8.0) g/dL H & H 10/03/24 Range/Units 02:33 Hgb 11.3 L (14.0-18.0) g/dl Hct 32.3 L (42.0-52.0) % All other labs normal. Diagnostic results Wrist/Hand x-ray: report reviewed and image reviewed Wrist/Hand CT: report reviewed and image reviewed Assessment and Plan (1) Cellulitis of hand: Status: Acute (2) Abscess of hand, left: Status: Acute Plan 1. Dorsal left hand infection I educated the patient about the condition. I discussed both operative and nonoperative treatment options. The patient would like to proceed with surgery. The risks and benefits of operative treatment were discussed with the patient and the patient wishes to proceed with surgery. These risks include, but are not limited to, risk of damage to blood vessels, nerves, tendons, infection, recurrence, incomplete relief of preoperative symptoms, persistent pain, possible need for further surgery, and the risks associated with regional blocks and/or anesthesia. Plan is to take the patient to the operating room at some point in the next few weeks for the following procedures: 1. Left hand I and D under general NPO at midnight Continue IV antibiotics Continue with all other recommendations per Medicine Procedures Date of Service Date of Service: 10/03/24
--- NOTE | 2024-10-03 09:44 | MHC.CM.PN ---
EMR REVIEWED, PT ADMITTED W/DIFFUSE CELLULITIS OF LEFT HAND AND ARM, CM ATTEMPTED TO MEET W/PT HOWEVER PT SOUNDLY SLEEPING LIKELY D/T MEDICATION GIVEN D/T AGITATION PER MD REPORTS. INFORMATION FROM ED DOCUMENTS AND H&P. PT LEFT ED AMA ON 10/02 AND REPORTED HE LEFT TO DISPOSE OF DRUGS AND REPORTED USING CRACK COCAINE DAILY PER ED H&P. PT'S TOX SCREEN POSITIVE FOR OPIATES, FENTANYL, COCAINE, BENZOS, COCAINE AND MARIJUANA. BC'S ARE CURRENTLY PENDING. PT MAY NEED SNF IF BC'S COME BACK POSITIVE. CM WILL REVISIT ONCE PT AWAKE. REFERRAL TO FS SENT VIA EMAIL, FS ATTEMPTED TO MEET W/PT HOWEVER UNABLE TO WAKE PT AND WILL REVISIT LATER TODAY.
--- NOTE | 2024-10-03 11:42 | PHA.MEDREC ---
Addendum entered by Davi Carmichael 10/03/24 12:06: reviewed Original Note: Pharmacy Consult ? Medication Reconciliation Pharmacy has completed the medication reconciliation. Spoke with patient and he isn't taking any medications at this time.
--- NOTE | 2024-10-03 12:46 | HO.ADDICTCON ---
History of Present Illness Date of Service: 10/03/2024 Chief Complaint: hand infection Reason for Consult: substance use Sources of Information: chart reviewed HPI Narrative: Patient is a 44 year old male medically admitted with abscess of the hand. Consult requested as patient reported substance use at time of admission. Most information obtained via chart review as patient was difficult to rouse/stay awake when seen by this automatic typewriter inspector. Responds to name, and brief questions, but quickly back to sleep. --overnight he did receive several medications while attempting to have an CT scan due to restlessness. He appears to be resting comfortably and no withdrawal sx noted (yawning, restlessness, or diaphoresis) UDS +fentanyl, benzodiazepines, and cocaine. Admission note states that patient reported smoking crack cocaine, and occasional IN use of heroin/fentanyl. Previous ED visits related to cocaine use Medical Evaluation Reviewed: Yes Review of Systems Review of Systems Yes Unobtainable due to mental status Diagnostics Vital Signs (24Hr): Vital Signs - 24 hr 10/02/24 23:07 10/03/24 00:46 10/03/24 01:16 Temperature 98.6 F Pulse Rate 107 H 110 H 99 Respiratory Rate 22 H 22 H 14 Blood Pressure 127/73 115/70 113/72 Pulse Oximetry 96 96 93 Oxygen Delivery Method Room Air Room Air Room Air 10/03/24 04:27 10/03/24 07:43 Temperature 98.1 F 98.3 F Pulse Rate 87 82 Respiratory Rate 20 16 Blood Pressure 133/68 114/82 Pulse Oximetry 95 94 Oxygen Delivery Method Room Air Room Air BMI result Body Mass Index 26.1 Labs 10/03/24 02:33 10/03/24 02:33 Labs: Laboratory Results - last 48 hr 10/03/24 02:33 WBC 14.9 H RBC 3.64 L Hgb 11.3 L Hct 32.3 L MCV 88.7 MCH 31.0 MCHC 35.0 RDW 12.1 Plt Count 173 MPV 10.1 Immature Gran % (Auto) 0.3 Neut % (Auto) 80.0 H Lymph % (Auto) 12.5 L Vance % (Auto) 6.8 Eos % (Auto) 0.2 Baso % (Auto) 0.2 Lymph # (Auto) 1.9 Vance # (Auto) 1.0 Eos # (Auto) 0.0 Baso # (Auto) 0.0 Abs Immat Gran (auto) 0.05 H Absolute Neuts (auto) 11.9 H Absolute Nucleated RBC 0.000 Nucleated RBC % (auto) 0.0 Sodium 134 L Potassium 3.3 Chloride 99 Carbon Dioxide 24 Anion Gap 14 BUN 15 Creatinine 0.86 Estim Creat Clear Calc 110.7 Estimated GFR > 60 Random Glucose 112 Lactic Acid 0.6 Calcium 8.3 L D Total Bilirubin 0.6 AST 29 ALT 16 Alkaline Phosphatase 56 Total Creatine Kinase 930 H Total Protein 6.4 L Albumin 3.5 Mental Status Exam Mental Status Exam Level of Consciousness: Sedated Patient Behavior: Asleep Medications Medications Current Medications Acetaminophen (Acetaminophen 325 Mg Tablet) 650 mg PO Q6H PRN PRN Reason: Pain, Mild 1-3,fever,headache Calcium Carbonate (Calcium Carbonate 750 Mg Tab.Chew) 750 mg PO Q4H PRN PRN Reason: Heartburn Enoxaparin Sodium (Enoxaparin Sodium 40 Mg/0.4 Ml Syringe) 40 mg SUBCUT Q24H [facility] Vancomycin HCl 1,250 mg/ (Sodium Chloride) 250 mls @ 166.667 mls/hr IV Q12H [facility] Piperacillin Sod/Tazobactam (Sod 3.375 gm/ Sodium Chloride) 50 mls @ 100 mls/hr IV Q6H [facility] Last Infusion: 10/03/24 09:58 Dose: Infused Sodium Chloride (Ns) 1,000 mls @ 125 mls/hr IVCONT .Q8H [facility] Last Admin: 10/03/24 08:50 Dose: 125 mls/hr Magnesium Hydroxide (Milk Of Magnesia 30 Ml Oral.Susp) 30 ml PO DAILY PRN PRN Reason: Constipation Melatonin (Melatonin 3 Mg Tablet) 6 mg PO BEDTIME PRN PRN Reason: Insomnia Ondansetron HCl (Ondansetron Hcl 4 Mg/2 Ml Vial) 4 mg IVPUSH Q8H PRN PRN Reason: Nausea and Vomiting Pharmacy Consult (Consult Rx Vancomycin Dosing) 1 each MISCELLANE DAILY PRN PRN Reason: Consult order Sodium Chloride (0.9 % Sodium Chloride Flush 3 Ml Syringe) 3 ml IVFLUSH QSHIFT [facility] Last Admin: 10/03/24 08:50 Dose: 3 ml Allergies Allergies Allergy/AdvReac Type Severity Reaction Status Date / Time No Known Allergies Allergy Verified 05/13/25 23:09 [No Known Allergies*] Assessment & Plan Assessment & Plan (1) Cocaine use disorder: Status: Acute Code(s): F14.10 - Cocaine abuse, uncomplicated Assessment and Plan: unable to assess patient regarding current substance use as he was unable to remain awake monitor for possible opiate withdrawal (COWS) HIV and hepatitis screens will follow up in the AM Total time managing care of this patient today __20__ minutes. PMFSH Past Medical History Medical History Substance abuse Asthma Social History Social History Household Members Other:: unable to assess Housing Other:: unable to assess Alcohol intake: current Patient Tobacco Use Status: Tobacco use Unknown Smoked in Last 30 Days: Yes Frequency of e-Cigarette/Vaping Use: unable to assess Use of substances other than those prescribed or required for medical reasons: Unable to respond Substance Use Type: Crack/Cocaine and Heroin Substance Use Frequency: Chronic Longstanding Last Used Substance: Hours (ago) Currently Displaying Signs/Symptoms of Drug Intoxication Withdrawal: No Advance Directives: No Advance Directives Information Provided: Yes Do you have a plan to hurt others: No Plan Nutrition Risks: No Nutritional Risk service: No
--- NOTE | 2024-10-03 13:58 | HO.WOUND ---
Wound Consult: Initial 44yr old? admitted to [facility] [place] 10/03/24 01:53 - See progress notes and H&P for detailed history.? Wound consult placed for Right Hand.? Patient agreeable to assessment and photo documentation.? Patient is noted to be sleepy and quickly falls asleep is not able to offer much in details. Orthopedic team is consulted and following patient with plan to bring to OR for I&D - will defer to ortho team at this time. Etiology: Infected hand finger abscess? - purulent filed sites to right 2nd finger and 4th finger - dorsal side open moist wound bed - significant swelling, redness and warmth. Pain: Pain reported Goals of Treatment: ? topical dressing with xeroform and gauze wrap - defer to ortho team. Recommendations: Right Hand - Defer to Ortho team for topical orders. Re-consult wound care Nurse for wound deterioration or wound changes.
--- NOTE | 2024-10-03 14:03 | P.PNIM_ITS ---
Subjective Subjective Date of Service: 10/03/24 Interval History: still quite somnolent after multiple sedatives given in ED afebrile hand swollen Review of Systems Review of Systems: Yes Unobtainable due to mental status Physical Exam 2 Vital Signs: Vital Signs: Last Vital Signs Temp 98.3 F 10/03/24 07:43 Pulse 82 10/03/24 07:43 Resp 16 10/03/24 07:43 BP 114/82 10/03/24 07:43 Pulse Ox 94 10/03/24 07:43 O2 Del Method Room Air 10/03/24 07:43 BMI result Body Mass Index 26.1 Gen: somnolent but arousable HEENT: sclera anicteric, moist mucus membranes Neck: supple Lungs: clear to auscultation bilaterally Heart: regular rate and rhythm, no murmurs Abd: soft, non-tender, non-distended Ext: no edema, R hand with extensive dorsal swelling and erythema Skin: warm/well-perfused Neuro: somnolent but arousable, moving all extremities Psych: restricted affect Objective Data Active Medications Acetaminophen (Acetaminophen 325 Mg Tablet) 650 mg PO Q6H PRN PRN Reason: Pain, Mild 1-3,fever,headache Calcium Carbonate (Calcium Carbonate 750 Mg Tab.Chew) 750 mg PO Q4H PRN PRN Reason: Heartburn Enoxaparin Sodium (Enoxaparin Sodium 40 Mg/0.4 Ml Syringe) 40 mg SUBCUT Q24H [facility] Vancomycin HCl 1,250 mg/ (Sodium Chloride) 250 mls @ 166.667 mls/hr IV Q12H [facility] Piperacillin Sod/Tazobactam (Sod 3.375 gm/ Sodium Chloride) 50 mls @ 100 mls/hr IV Q6H [facility] Last Admin: 10/03/24 13:41 Dose: 100 mls/hr Documented By: KG Sodium Chloride (Ns) 1,000 mls @ 125 mls/hr IVCONT .Q8H [facility] Last Admin: 10/03/24 08:50 Dose: 125 mls/hr Documented By: KG Magnesium Hydroxide (Milk Of Magnesia 30 Ml Oral.Susp) 30 ml PO DAILY PRN PRN Reason: Constipation Melatonin (Melatonin 3 Mg Tablet) 6 mg PO BEDTIME PRN PRN Reason: Insomnia Ondansetron HCl (Ondansetron Hcl 4 Mg/2 Ml Vial) 4 mg IVPUSH Q8H PRN PRN Reason: Nausea and Vomiting Pharmacy Consult (Consult Rx Vancomycin Dosing) 1 each MISCELLANE DAILY PRN PRN Reason: Consult order Sodium Chloride (0.9 % Sodium Chloride Flush 3 Ml [facility]) [facility] Admin: 10/03/24 08:50 Dose: 3 ml Documented By: KG Labs 10/03/24 02:33 10/03/24 02:33 Labs: Laboratory Results - last 24 hr 10/03/24 02:33 MCV 88.7 MCH 31.0 MCHC 35.0 RDW 12.1 Plt Count 173 MPV 10.1 Immature Gran % (Auto) 0.3 Neut % (Auto) 80.0 H Lymph % (Auto) 12.5 L [place]ferro % (Auto) 6.8 Eos % (Auto) 0.2 Baso % (Auto) 0.2 Lymph # (Auto) 1.9 [place] # (Auto) 1.0 Eos # (Auto) 0.0 Baso # (Auto) 0.0 Abs Immat Gran (auto) 0.05 H Absolute Neuts (auto) 11.9 H Absolute Nucleated RBC 0.000 Nucleated RBC % (auto) 0.0 Anion Gap 14 Estim Creat Clear Calc 110.7 Estimated GFR > 60 Random Glucose 112 Lactic Acid 0.6 Calcium 8.3 L D Total Bilirubin 0.6 AST 29 ALT 16 Alkaline Phosphatase 56 Total Creatine Kinase 930 H Total Protein 6.4 L Albumin 3.5 Assessment and Plan (1) Cellulitis of hand: Status: Acute Plan d2 for 44yo M with polysubstance abuse [fentanyl, cocaine, benzodiazepines] admitted for hand infection; initially presented 10/02 but left AMA to dispose of illiit drugs, reportedly injured hand from cleaning a crack pipe with a piece of wood R hand infection - concern for abscess +/- tenosynovitis. Ortho consulted, plan operative washout in AM. Continue vancomycin + piperacillin-tazobactam 10/03-, follow BCx and any intraoperative cultures mild rhabdomyolysis - due to cocaine/crack abuse; give IV NS, recheck CPK in AM acute toxic encephalopathy due to polysubstance abuse - Addiction Medicine consult, screen for HBV/HCV/HIV VTE ppx - enoxaparin dispo - TBD In my clinical judgment, the patient requires continued inpatient hospitalization for the following reasons: IV ABX, operative intervention Total time managing care of this patient today: 35 minutes. Quality Stroke Does the patient have a stroke diagnosis?: No VTE Prior VTE?: No VTE Risk Level:: Medical - moderate - high VTE Device Contraindication: Treatment Not Indicated VTE Drug Contraindication: N/A - Med Ordered
[2024-10-03] MEDS: vancomycin HCL 1,250 MG in 0.9 % Sodium Chloride 250 ML 166.67 MG IV (14:09)
[2024-10-04] VITALS (10 sets, daily range): BP systolic 103–133; BP diastolic 58–81; PULSE 73–83; RESP 16–79; TEMP 36.3–37.3; O2SAT 96–99
[2024-10-04] MEDS: Piperacillin Sodium/Tazobactam 3.375 GM in 0.9 % Sodium Chloride 50 ML IV ×4 (01:21→19:31)
[2024-10-04] MEDS: vancomycin HCL 1,250 MG in 0.9 % Sodium Chloride 250 ML 166.67 MG IV ×3 (02:28→21:26)
[2024-10-04] MEDS: 0.9 % Sodium Chloride 1,000 ML 125 ML IVCONT ×3 (02:32→17:18)
[2024-10-04 06:05] LABS: MANUAL DIFF FLAG NO
[2024-10-04 06:17] LABS: Basophils Percent Auto 0.2 % (0-2); Eosinophils Absolute Auto 0.3 X10*3/uL (0.0-0.4); Hematocrit 32.9 % (42.0-52.0); Hemoglobin 11.2 g/dl (14.0-18.0); Imm Gran Abs Auto 0.03 X10*3/uL (0.00-0.03); Imm Gran Pct Auto 0.3 % (0.0-0.4); Lymphocytes Absolute Auto 2.1 X10*3/uL (1.2-4.9); Lymphocytes Percent Auto 24.1 % (20-40); Mean Corpuscular Hemoglobin 30.9 pg (27.0-33.0); Mean Corpuscular Volume 90.9 fL (80.0-98.0); Mean Platelet Volume 10.5 fL (9.4-12.4); Monocytes Absolute Auto 0.6 X10*3/uL (0.1-1.2); Monocytes Percent Auto 6.4 % (2-11); Neutrophils Absolute Auto 5.7 x10*3/uL (2.0-8.3); Platelet Count 186 X10*3/uL (160-400); Red Blood Count 3.62 X10*6/uL (4.60-5.80); Red Cell Distribution Width 12.6 % (11.0-16.0); White Blood Count 8.7 X10*3/uL (4.8-10.8)
[2024-10-04 06:26] LABS: Anion Gap 12 (12-20); Blood Urea Nitrogen 9 mg/dL (9-16); Calcium 8.2 mg/dL (8.4-10.2); Carbon Dioxide 26 mmol/L (22-29); Chloride 106 mmol/L (96-108); Creatinine Clr Calc Pharmacy 120.5; Estimated Glomerular Filt Rate > 60; Glucose Random 113 mg/dL (60-115); Sodium 141 mmol/L (135-145)
[2024-10-04 08:00] LABS: Magnesium 2.1 mg/dL (1.6-2.6)
[2024-10-04 08:09] LABS: HBS Num1 37.86 mIU/mL (0-7.99); HBc Num1 0.09 S/CO (0.00-0.79); HBsAGNum1 0.42 S/CO (0.00-0.99); HIV AB/AG Nonreactive (Nonreactive); HIV Num 1 0.05 S/CO (0.00-0.99); Hepatitis B Core Antibody Nonreactive (Nonreactive); Hepatitis B Surface Antigen Negative (Negative); ~HepC Num1 0.08 S/CO (0.00-0.79); ~Hepatitis B Surface Antibody REACTIVE (Nonreactive); ~Hepatitis C Antibody Nonreactive (Nonreactive)
[2024-10-04] MEDS: Potassium Chloride/H20 10 MEQ/100 ML PIGGYBACK 100 MEQ IV (08:33)
[2024-10-04] MEDS: Potassium Chloride ER 20 MEQ TAB.ER.PRT 40 MEQ PO (09:40)
--- NOTE | 2024-10-04 11:25 | P.PNIM_ITS ---
Subjective Subjective Date of Service: 10/04/24 Interval History: R hand swollen, erythematous, tender no fever much more awake states his substance of choice is cocaine, not heroin or fentanyl Review of Systems Review of Systems: Yes all other systems are reviewed and are negative Physical Exam 2 Vital Signs: Vital Signs: Last Vital Signs Temp 99.2 F 10/04/24 07:41 Pulse 78 10/04/24 07:41 Resp 16 10/04/24 07:41 BP 133/79 10/04/24 07:41 Pulse Ox 97 10/04/24 07:41 O2 Del Method Room Air 10/04/24 07:41 BMI result Body Mass Index 26.1 Gen: NAD HEENT: sclera anicteric, moist mucus membranes Neck: supple Lungs: clear to auscultation bilaterally Heart: regular rate and rhythm, no murmurs Abd: soft, non-tender, non-distended Ext: no edema, R hand with extensive dorsal swelling and erythema Skin: warm/well-perfused Neuro: alert and oriented, moving all extremities Psych: restricted affect Objective Data Active Medications Acetaminophen (Acetaminophen 325 Mg Tablet) 650 mg PO Q6H PRN PRN Reason: Pain, Mild 1-3,fever,headache Calcium Carbonate (Calcium Carbonate 750 Mg Tab.Chew) 750 mg PO Q4H PRN PRN Reason: Heartburn Enoxaparin Sodium (Enoxaparin Sodium 40 Mg/0.4 Ml Syringe) 40 mg SUBCUT Q24H [facility] Vancomycin HCl 1,250 mg/ (Sodium Chloride) 250 mls @ 166.667 mls/hr IV Q12H [facility] Last Infusion: 10/04/24 04:02 Dose: Infused Documented By: DEMETRIO Piperacillin Sod/Tazobactam (Sod 3.375 gm/ Sodium Chloride) 50 mls @ 100 mls/hr IV Q6H [facility] Last Infusion: 10/04/24 08:29 Dose: Infused Documented By: SALOME Sodium Chloride (Ns) 1,000 mls @ 125 mls/hr IVCONT .Q8H [facility] Last Admin: 10/04/24 09:41 Dose: 125 mls/hr Documented By: SALOME Magnesium Hydroxide (Milk Of Magnesia 30 Ml Oral.Susp) 30 ml PO DAILY PRN PRN Reason: Constipation Melatonin (Melatonin 3 Mg Tablet) 6 mg PO BEDTIME PRN PRN Reason: Insomnia Ondansetron HCl (Ondansetron Hcl 4 Mg/2 Ml Vial) 4 mg IVPUSH Q8H PRN PRN Reason: Nausea and Vomiting Pharmacy Consult (Consult Rx Vancomycin Dosing) 1 each MISCELLANE DAILY PRN PRN Reason: Consult order Sodium Chloride (0.9 % Sodium Chloride Flush 3 Ml Syringe) 3 ml IVFLUSH QSHIFT [facility] Last Admin: 10/04/24 08:10 Dose: Not Given Documented By: SALOME Non-Admin Reason: IV Running Labs 10/04/24 05:34 10/04/24 05:34 Labs: Laboratory Results - last 24 hr 10/04/24 05:34 MCV 90.9 MCH 30.9 MCHC 34.0 RDW 12.6 Plt Count 186 MPV 10.5 Immature Gran % (Auto) 0.3 Neut % (Auto) 66.0 Lymph % (Auto) 24.1 Day % (Auto) 6.4 Eos % (Auto) 3.0 Baso % (Auto) 0.2 Lymph # (Auto) 2.1 Day # (Auto) 0.6 Eos # (Auto) 0.3 Baso # (Auto) 0.0 Abs Immat Gran (auto) 0.03 Absolute Neuts (auto) 5.7 Absolute Nucleated RBC 0.000 Nucleated RBC % (auto) 0.0 Anion Gap 12 Estim Creat Clear Calc 120.5 Estimated GFR > 60 Random Glucose 113 Calcium 8.2 L Magnesium 2.1 Total Creatine Kinase 478 H Hep Bs Antigen Negative Hep Bs Antibody REACTIVE Hep B Core Total Ab Nonreactive Hepatitis C Ab (EIA) Nonreactive HIV 1&2 Ab/P24 Ag 4thGn Nonreactive Microbiology Microbiology Results: Microbiology 10/03/24 02:33 Blood Culture - Preliminary Blood - Venous No growth after 24 hours. 10/03/24 02:33 Blood Culture - Preliminary Blood - Venous No growth after 24 hours. Assessment and Plan (1) Cellulitis of hand: Status: Acute Plan d3 for 44yo M with polysubstance abuse [fentanyl, cocaine, benzodiazepines] admitted for hand infection; initially presented 10/02 but left AMA to dispose of illicit drugs, reportedly injured hand from cleaning a crack pipe R hand infection - concern for abscess +/- tenosynovitis. Ortho consulted, plan operative washout today; continue vancomycin + piperacillin-tazobactam 10/03-, follow BCx and any intraoperative cultures mild rhabdomyolysis - due to cocaine/crack abuse; CPK stable acute toxic encephalopathy due to polysubstance abuse - Addiction Medicine consult, HBV immune, HCV negative, HIV negative VTE ppx - enoxaparin dispo - TBD In my clinical judgment, the patient requires continued inpatient hospitalization for the following reasons: IV ABX, operative intervention Total time managing care of this patient today: 35 minutes. Quality Stroke Does the patient have a stroke diagnosis?: No VTE Prior VTE?: No VTE Risk Level:: Medical - moderate - high VTE Device Contraindication: Treatment Not Indicated VTE Drug Contraindication: N/A - Med Ordered
--- NOTE | 2024-10-04 11:29 | PM.EVENT ---
Event Note Date of Service: 10/04/24 Event Note: addendum to progress note 10/04/24 hypokalemia - replete, recheck K in AM Time Spent With Patient Time: Total time managing care of this patient today ____ minutes.
[2024-10-04] MEDS: valACYclovir HCL 1,000 MG TABLET 1000 MG PO ×2 (12:22→19:31)
[2024-10-04 12:28] LABS: Vancomycin Random 7.4 mcg/mL (15-20)
--- NOTE | 2024-10-04 13:28 | P.PNADD_ITS ---
Subjective Subjective Date of Service: 10/04/24 Reason For Visit: hand infection Interim History: Patient seen in follow up for cocaine use Today, he is awake, alert and somewhat engaged in interview Reports he has been smoking crack cocaine for years , but is not using as much as he used to Discussed fentanyl use, he states he does this when he feels he has used too much cocaine as a way to come down. States he never buys more than one bag at a time, and rarely uses it overall. Denies any other substance use, including alcohol. When asked about treatment, or reduction of use, patient stated, no, no, I'm good, I know what I need to do . He denies any withdrawal sx, and denies any history of withdrawal sx Appears overall comfortable, somewhat restless, some diaphoresis noted (states he is always sweaty), denies n/v--also NPO pending OR Declines further discussion around substance use Review of Systems Acute medical concerns: Yes Review of Systems Constitutional: Reports as per HPI and Reports no additional constitutional complaints Mental Status Exam Mental Status Exam Patient Appearance: Appropriate Patient Orientation: Person, Place, Time and Situation Level of Consciousness: Awake, Appropriate and Alert Patient Behavior: Appropriate and Guarded Mood Description: Calm Affect Description: Calm Speech Pattern: Clear Hallucinations: None Thought Content: positive for Intact Judgement: Good Diagnostics Vital Signs (24Hr): Vital Signs - 24 hr 10/03/24 15:55 10/03/24 23:54 10/04/24 07:41 Temperature 100.1 F 98.0 F 99.2 F Pulse Rate 90 81 78 Respiratory Rate 18 16 16 Blood Pressure 134/63 110/70 133/79 Pulse Oximetry 95 95 97 Oxygen Delivery Method Room Air Room Air Room Air BMI result Body Mass Index 26.1 Labs 10/04/24 05:34 10/04/24 05:34 Labs: Laboratory Results - last 48 hr 10/03/24 10/04/24 10/04/24 02:33 05:34 12:12 WBC 14.9 H 8.7 RBC 3.64 L 3.62 L Hgb 11.3 L 11.2 L Hct 32.3 L 32.9 L MCV 88.7 90.9 MCH 31.0 30.9 MCHC 35.0 34.0 RDW 12.1 12.6 Plt Count 173 186 MPV 10.1 10.5 Immature Gran % (Auto) 0.3 0.3 Neut % (Auto) 80.0 H 66.0 Lymph % (Auto) 12.5 L 24.1 Hunt % (Auto) 6.8 6.4 Eos % (Auto) 0.2 3.0 Baso % (Auto) 0.2 0.2 Lymph # (Auto) 1.9 2.1 Hunt # (Auto) 1.0 0.6 Eos # (Auto) 0.0 0.3 Baso # (Auto) 0.0 0.0 Abs Immat Gran (auto) 0.05 H 0.03 Absolute Neuts (auto) 11.9 H 5.7 Absolute Nucleated RBC 0.000 0.000 Nucleated RBC % (auto) 0.0 0.0 Sodium 134 L 141 Potassium 3.3 3.0 L Chloride 99 106 Carbon Dioxide 24 26 Anion Gap 14 12 BUN 15 9 Creatinine 0.86 0.79 Estim Creat Clear Calc 110.7 120.5 Estimated GFR > 60 > 60 Random Glucose 112 113 Lactic Acid 0.6 Calcium 8.3 L D 8.2 L Magnesium 2.1 Total Bilirubin 0.6 AST 29 ALT 16 Alkaline Phosphatase 56 Total Creatine Kinase 930 H 478 H Total Protein 6.4 L Albumin 3.5 Random Vancomycin 7.4 L Hep Bs Antigen Negative Hep Bs Antibody REACTIVE Hep B Core Total Ab Nonreactive Hepatitis C Ab (EIA) Nonreactive HIV 1&2 Ab/P24 Ag 4thGn Nonreactive Medications Medications Current Medications Acetaminophen (Acetaminophen 325 Mg Tablet) 650 mg PO Q6H PRN PRN Reason: Pain, Mild 1-3,fever,headache Calcium Carbonate (Calcium Carbonate 750 Mg Tab.Chew) 750 mg PO Q4H PRN PRN Reason: Heartburn Enoxaparin Sodium (Enoxaparin Sodium 40 Mg/0.4 Ml Syringe) 40 mg SUBCUT Q24H COUNT INCLUDES THE [facility] Piperacillin Sod/Tazobactam (Sod 3.375 gm/ Sodium Chloride) 50 mls @ 100 mls/hr IV Q6H COUNT INCLUDES THE [facility] Last Admin: 10/04/24 13:11 Dose: 100 mls/hr Sodium Chloride (Ns) 1,000 mls @ 125 mls/hr IVCONT .Q8H COUNT INCLUDES THE [facility] Last Admin: 10/04/24 09:41 Dose: 125 mls/hr Vancomycin HCl 1,250 mg/ (Sodium Chloride) 250 mls @ 166.667 mls/hr IV Q8H COUNT INCLUDES THE [facility] Magnesium Hydroxide (Milk Of Magnesia 30 Ml Oral.Susp) 30 ml PO DAILY PRN PRN Reason: Constipation Melatonin (Melatonin 3 Mg Tablet) 6 mg PO BEDTIME PRN PRN Reason: Insomnia Ondansetron HCl (Ondansetron Hcl 4 Mg/2 Ml Vial) 4 mg IVPUSH Q8H PRN PRN Reason: Nausea and Vomiting Pharmacy Consult (Consult Rx Vancomycin Dosing) 1 each MISCELLANE DAILY PRN PRN Reason: Consult order Sodium Chloride (0.9 % Sodium Chloride Flush 3 Ml Syringe) 3 ml IVFLUSH QSHIFT COUNT INCLUDES THE [facility] Last Admin: 10/04/24 08:10 Dose: Not Given Valacyclovir HCl (Valacyclovir Hcl 1,000 Mg Tablet) 1,000 mg PO BID COUNT INCLUDES THE [facility] Last Admin: 10/04/24 12:22 Dose: 1,000 mg Allergies Allergies Allergy/AdvReac Type Severity Reaction Status Date / Time No Known Allergies Allergy Verified 10/02/24 23:09 [No Known Allergies*] Assessment & Plan Assessment & Plan (1) Cocaine use disorder: Status: Acute Code(s): F14.10 - Cocaine abuse, uncomplicated Assessment and Plan: * declines further intervention related to FRANK, including medications for FRANK, or appt/referral for outpatient FRANK treatment * declines take home narcan * encouraged to request to speak to t/w should he change his mind Total time managing care of this patient today _25___ minutes.
[2024-10-04] MEDS: Lactated Ringers 1,000 ML 50 ML IVCONT (14:08)
--- NOTE | 2024-10-04 14:31 | MHC.SHP ---
Pre-Procedural Eval Section A - 24 Hr Update-Section A only Date of Service: 10/04/24 Changes since office visit: No Cold of Flu in the past 2 weeks, No New Medical Problems, No Changes in Medication and No Patient answered all questions The patient has been examined within 24 hours of the surgical procedure. The History & Physical has been completed within 30 days and I have reviewed it.: Yes Section B - Complete if H&P > 30 days Chief Complaint: hand infection Allergies: Allergies Allergy/AdvReac Type Severity Reaction Status Date / Time No Known Allergies Allergy Verified 10/02/24 23:09 [No Known Allergies*] Exam Exam Comment: Patient seen in preop hold. Right hand managed. The patient was able to actively flex and extend his fingers. Plan I have reviewed the history and physical and performed a pertinent physical examination on my patient. No changes have occurred unless specified. Assessment and plan: 1. Right hand infection The risks and benefits of operative treatment were discussed with the patient and the patient wishes to proceed with surgery. These risks include, but are not limited to risk of damage to blood vessels, nerves, tendons, infection, recurrence, incomplete relief of preoperative symptoms, persistent pain, possible need for further surgery and the risks associated with regional blocks and anesthesia. The plan is to take the patient to the operating room today for the following procedures: 1. Right hand I&D 2. [ ] All of the preoperative paperwork including the consent was filled out today. All the patient's questions were answered. Time Spent With Patient Time: Total time managing care of this patient today ____ minutes.
--- NOTE | 2024-10-04 14:34 | P.OP_ITS ---
Operative Note Operative Note Date of Service: 10/04/24 Narrative: Operative Note Narrative: Preop diagnosis: 1. Right dorsal hand infection 2. Right ring finger paronychia 3. Right index finger abscess Postop diagnosis: Same Procedure: 1. Right index finger I&D of abscess, dorsal 2. Right ring finger paronychia I and D 3. Right hand debridement of dorsal hand wounds Surgeon: Andra Montaño MD Vocational Nursing Instructor: Kennedy STONE Anesthesia: General Anesthesia Findings: Creamy yellow purulence from the abscess involving the dorsal aspect of the right index finger over the proximal and middle phalanxes. Cloudy watery purulent fluid from the paronychia of the right ring finger which extended under the radial aspect of the finger nail Swelling and erythema significantly improved over the dorsal aspect of the hand. Crusted wounds over the dorsal aspect of the hand and the dorsal aspect of the middle finger proximal phalanx were debrided, and did not appear to extend into the deeper tissues. Implants: None Tourniquet time: 0 minutes EBL: 5.0 ml Specimen: Cultures of creamy yellow purulence from index finger abscess sent for routine cultures Drains: None Complications: None Disposition: Brought to the recovery room in stable condition Plan: Admit back to floor for IV antibiotics. Dressing change with ortho late tomorrow. Daily nursing dressing changes after that Check cultures and adjust antibiotics Encourage finger range of motion exercises as symptoms improve. Follow-up in clinic within about 5 days days after discharge for wound check, suture removal and to check pathology Indications: The patient is a 44 year old man with a right dorsal hand infection secondary to lacerating it with a broken crack pipe . The risks and benefits of operative treatment, including but not limited to risk of damage to blood vessels, nerves, tendons, infection, recurrence, persistent pain or numbness, incomplete resolution of preoperative symptoms, or need for further surgery were discussed with the patient and they wished to proceed with surgery. Procedure: Once consent was obtained patient was brought back to the operating suite and placed in the operating table in a supine position. . Perioperative antibiotics and anesthesia was administered by the anesthesia team. A tourniquet was applied to the proximal aspect of the right upper extremity and the limb was prepped and draped in a standard surgical fashion. The limb was elevated exsanguinated with Esmarch bandage and the tourniquet inflated to 250 mm of mercury for a total tourniquet time of 0 minutes. I made 2 longitudinal incisions over the dorsal aspect of the right index finger. One was over a wound over the radial aspect of the PIP joint. The other was just distal and ulnar to the PIP joint. Both incisions were through the skin to the subcutaneous tissues. I used iris scissors to penetrate into the subcutaneous layer where we encountered copious amounts of creamy yellow purulence. Cultures were taken. The purulence was expressed from the finger. The digit was copiously irrigated with normal saline using a 10 mL syringe and an Angiocath. He also had a paronychial infection involving the nail bed of the right ring finger. I passed a [place] elevator beneath the eponychial fold and encountered some cloudy watery purulence. This infection appeared to extend under the radial aspect of the finger nail which was elevated from the germinal matrix. The tissue was debrided and this was also copiously irrigated with normal saline. The patient also had 2 wounds over the dorsal aspect of the right hand. One was over the distal aspect of the 3rd metacarpal and measured approximately 2 cm in diameter. The 2nd was over the dorsal aspect of the middle finger proximal phalanx. Both wounds had dirty crusted material. I debrided both wounds of this material. Fortunately the wound underneath appeared to be partial- thickness and these wounds were copiously irrigated with normal saline. Hemostasis was obtained with a brief period of local pressure The wound was copiously irrigated with normal saline. No sutures were placed. The digital block was performed on the right index finger utilizing some 1% lidocaine with epinephrine for postop pain control. I did apply some antibiotic ointment to the more superficial wounds on the dorsum of the hand. Sterile dressings were applied The patient appears to have tolerated the procedure well and with no complications. All digits were well vascularized conclusion of the case.
--- NOTE | 2024-10-04 15:45 | HO.ANESPROP2 ---
HPI - Anesthesia Eval Consult details Narrative: 44 yo M presenting for I&D of right hand. History of polysubstance abuse with positive tox screen on admission. [facility] Active Problems Active Problems: All Active Problems Cocaine use disorder (Acute) Abscess of hand, left (Acute) Adverse drug reaction (Acute) Cellulitis of hand (Acute) Past Medical History Medical History Substance abuse Asthma Family History Family history of problems with anesthesia: No Surgical History History of Problems with Anesthesia: No Social History Social History Household Members Other:: unable to assess Housing Other:: unable to assess Alcohol intake: current Alcohol intake frequency: does not drink Patient Tobacco Use Status: Current everyday Tobacco user Smoked in Last 30 Days: Yes Frequency of e-Cigarette/Vaping Use: unable to assess Use of substances other than those prescribed or required for medical reasons: Unable to respond Substance Use Type: Crack/Cocaine and Heroin Substance Use Frequency: Chronic Longstanding Last Used Substance: Hours (ago) Currently Displaying Signs/Symptoms of Drug Intoxication Withdrawal: No Have you been hit, kicked, punched, or otherwise hurt by someone within the past year? If so, by whom?: No Are you DNR?: No Advance Directives: No Advance Directives Information Provided: Yes Do you have a plan to hurt others: No Plan Nutrition Risks: No Nutritional Risk service: No Meds Allergies Allergy/AdvReac Type Severity Reaction Status Date / Time No Known Allergies Allergy Verified 10/02/24 23:09 [No Known Allergies*] Active Medications: Current Medications Acetaminophen (Acetaminophen 325 Mg Tablet) 650 mg PO Q6H PRN PRN Reason: Pain, Mild 1-3,fever,headache Calcium Carbonate (Calcium Carbonate 750 Mg Tab.Chew) 750 mg PO Q4H PRN PRN Reason: Heartburn Enoxaparin Sodium (Enoxaparin Sodium 40 Mg/0.4 Ml Syringe) 40 mg SUBCUT Q24H [facility] Piperacillin Sod/Tazobactam (Sod 3.375 gm/ Sodium Chloride) 50 mls @ 100 mls/hr IV Q6H [facility] Last Infusion: 10/04/24 13:47 Dose: Infused Sodium Chloride (Ns) 1,000 mls @ 125 mls/hr IVCONT .Q8H [facility] Last Admin: 10/04/24 09:41 Dose: 125 mls/hr Vancomycin HCl 1,250 mg/ (Sodium Chloride) 250 mls @ 166.667 mls/hr IV Q8H [facility] Last Admin: 10/04/24 15:06 Dose: 166.67 mls/hr Lactated Ringer's (Lr) 1,000 mls @ 50 mls/hr IVCONT .Q20H [facility] Last Admin: 10/04/24 14:08 Dose: 50 mls/hr Magnesium Hydroxide (Milk Of Magnesia 30 Ml Oral.Susp) 30 ml PO DAILY PRN PRN Reason: Constipation Melatonin (Melatonin 3 Mg Tablet) 6 mg PO BEDTIME PRN PRN Reason: Insomnia Ondansetron HCl (Ondansetron Hcl 4 Mg/2 Ml Vial) 4 mg IVPUSH Q8H PRN PRN Reason: Nausea and Vomiting Pharmacy Consult (Consult Rx Vancomycin Dosing) 1 each MISCELLANE DAILY PRN PRN Reason: Consult order Sodium Chloride (0.9 % Sodium Chloride Flush 3 Ml Syringe) 3 ml IVFLUSH QSHIFT [facility] Last Admin: 10/04/24 08:10 Dose: Not Given Valacyclovir HCl (Valacyclovir Hcl 1,000 Mg Tablet) 1,000 mg PO BID [facility] Last Admin: 10/04/24 12:22 Dose: 1,000 mg Home Medications ?Medication ?Instructions ?Recorded ?Confirmed ?Last Taken ?Type No Known Home Meds 10/03/24 10/03/24 Unknown History Exam Exam Date and Time: 10/04/24 1545 Height,Weight and Vital Signs: Height 5 ft 9 in Weight 80.2 kg Last Vital Signs Temp 98.8 F 10/04/24 14:00 Pulse 78 10/04/24 14:00 Resp 18 10/04/24 14:00 BP 104/74 10/04/24 14:00 Pulse Ox 96 10/04/24 14:00 O2 Del Method Room Air 10/04/24 14:00 Pertinent Lab Results Pertinent Lab Results: Laboratory Tests 10/03/24 10/04/24 10/04/24 02:33 05:34 12:12 WBC 14.9 H 8.7 RBC 3.64 L 3.62 L Hgb 11.3 L 11.2 L Hct 32.3 L 32.9 L MCV 88.7 90.9 MCH 31.0 30.9 MCHC 35.0 34.0 RDW 12.1 12.6 Plt Count 173 186 MPV 10.1 10.5 Immature Gran % (Auto) 0.3 0.3 Neut % (Auto) 80.0 H 66.0 Lymph % (Auto) 12.5 L 24.1 [place] % (Auto) 6.8 6.4 Eos % (Auto) 0.2 3.0 Baso % (Auto) 0.2 0.2 Lymph # (Auto) 1.9 2.1 [place] # (Auto) 1.0 0.6 Eos # (Auto) 0.0 0.3 Baso # (Auto) 0.0 0.0 Abs Immat Gran (auto) 0.05 H 0.03 Absolute Neuts (auto) 11.9 H 5.7 Absolute Nucleated RBC 0.000 0.000 Nucleated RBC % (auto) 0.0 0.0 Sodium 134 L 141 Potassium 3.3 3.0 L Chloride 99 106 Carbon Dioxide 24 26 Anion Gap 14 12 BUN 15 9 Creatinine 0.86 0.79 Estim Creat Clear Calc 110.7 120.5 Estimated GFR > 60 > 60 Random Glucose 112 113 Lactic Acid 0.6 Calcium 8.3 L D 8.2 L Magnesium 2.1 Total Bilirubin 0.6 AST 29 ALT 16 Alkaline Phosphatase 56 Total Creatine Kinase 930 H 478 H Total Protein 6.4 L Albumin 3.5 Random Vancomycin 7.4 L Hep Bs Antigen Negative Hep Bs Antibody REACTIVE Hep B Core Total Ab Nonreactive Hepatitis C Ab (EIA) Nonreactive HIV 1&2 Ab/P24 Ag 4thGn Nonreactive Airway Mallampati Class: I TM Dist: >3cm Neck ROM: Full Loose/Missing/Broken Teeth: No (patient denies any loose or broken teeth) Heart: S1S2 Lungs: CTAB Assessment and Plan Assessment Anesthesia Assessment: Anesthesia Plan Discussed and Chart Reviewed Final Anesthetic Review Family History of Problems with Anesthesia: No History of Problems with Anesthesia: No NPO: Yes ASA Class: III Final Preanesthetic Review: No Changes in Pt Med Stat, Meds/Allgs Chart Reviewed, Consent Obtained/Reviewed and Anes Risks/Benef Reviewed Patient Risk: Intermediate Procedure Risk: Low Anesthetic Plan Anesthetic Plan: GA and Agree w/ Assess. and Plan Disposition: Standard PACU
[2024-10-04] MEDS: Enoxaparin Sodium 40 MG/0.4 ML SYRINGE SUBCUT (18:33)
[2024-10-04] MEDS: 0.9 % Sodium Chloride Flush 3 ML SYRINGE IVFLUSH (19:31)
[2024-10-05] VITALS (7 sets, daily range): BP systolic 120–130; BP diastolic 62–86; PULSE 65–87; RESP 17–18; TEMP 36.7–37.3; O2SAT 94–97
[2024-10-05] MEDS: Piperacillin Sodium/Tazobactam 3.375 GM in 0.9 % Sodium Chloride 50 ML IV ×4 (01:34→19:41)
[2024-10-05] MEDS: 0.9 % Sodium Chloride 1,000 ML 125 ML IVCONT (01:37)
[2024-10-05] MEDS: Melatonin 3 MG TABLET 6 MG PO (01:38)
[2024-10-05] MEDS: vancomycin HCL 1,250 MG in 0.9 % Sodium Chloride 250 ML 166.67 MG IV ×2 (05:27→14:24)
[2024-10-05 06:11] LABS: Anion Gap 13 (12-20); Blood Urea Nitrogen 13 mg/dL (9-16); Calcium 8.3 mg/dL (8.4-10.2); Carbon Dioxide 26 mmol/L (22-29); Chloride 106 mmol/L (96-108); Creatinine Clr Calc Pharmacy 132.2; Estimated Glomerular Filt Rate > 60; Glucose Random 163 mg/dL (60-115); Potassium 3.6 mmol/L (3.3-5.1); Sodium 141 mmol/L (135-145)
[2024-10-05] MEDS: valACYclovir HCL 1,000 MG TABLET 1000 MG PO ×2 (07:46→19:43)
[2024-10-05] MEDS: oxyCODONE HCl Immed Release 5 MG TABLET PO ×2 (07:46→12:17)
[2024-10-05] MEDS: HYDROmorphone HCl 0.5 MG/0.5 ML SYRINGE IV ×2 (09:02→19:35)
--- NOTE | 2024-10-05 10:56 | HO.PM.IMPN ---
Subjective Subjective Date of Service: 10/05/24 Interval History: no fever swelling improved c/o hand pain POD1 Review of Systems Review of Systems: Yes all other systems are reviewed and are negative Physical Exam Vital Signs: Vital Signs: Last Vital Signs Temp 98.9 F 10/05/24 07:32 Pulse 72 10/05/24 07:32 Resp 17 10/05/24 07:32 BP 129/84 10/05/24 07:32 Pulse Ox 97 10/05/24 07:32 O2 Del Method Room Air 10/05/24 07:32 O2 Flow Rate 6 10/04/24 17:00 BMI result Body Mass Index 26.1 Gen: NAD HEENT: sclera anicteric, moist mucus membranes Neck: supple Lungs: clear to auscultation bilaterally Heart: regular rate and rhythm, no murmurs Abd: soft, non-tender, non-distended Ext: R hand in dressing with fingers less swollen than yesterday Skin: warm/well-perfused Neuro: alert and oriented, moving all extremities Psych: restricted affect Objective Data Active Medications Acetaminophen (Acetaminophen 325 Mg Tablet) 650 mg PO Q6H PRN PRN Reason: Pain, Mild 1-3,fever,headache Calcium Carbonate (Calcium Carbonate 750 Mg Tab.Chew) 750 mg PO Q4H PRN PRN Reason: Heartburn Enoxaparin Sodium (Enoxaparin Sodium 40 Mg/0.4 Ml Syringe) 40 mg SUBCUT Q24H [facility] Last Admin: 10/04/24 18:33 Dose: 40 mg Documented By: SALOME Hydromorphone HCl (Hydromorphone Hcl 0.5 Mg/0.5 Ml Syringe) 0.5 mg IV Q4H PRN; Protocol PRN Reason: Pain, Severe (Pain Scale 7-10) Last Admin: 10/05/24 09:02 Dose: 0.5 mg Documented By: SALOME Piperacillin Sod/Tazobactam (Sod 3.375 gm/ Sodium Chloride) 50 mls @ 100 mls/hr IV Q6H [facility] Last Infusion: 10/05/24 08:21 Dose: Infused Documented By: SALOME Vancomycin HCl 1,250 mg/ (Sodium Chloride) 250 mls @ 166.667 mls/hr IV Q8H [facility] Last Infusion: 10/05/24 07:06 Dose: Infused Documented By: SALOME Magnesium Hydroxide (Milk Of Magnesia 30 Ml Oral.Susp) 30 ml PO DAILY PRN PRN Reason: Constipation Melatonin (Melatonin 3 Mg Tablet) 6 mg PO BEDTIME PRN PRN Reason: Insomnia Last Admin: 10/05/24 01:38 Dose: 6 mg Documented By: CASTILCarli Naloxone HCl (Naloxone Hcl 0.4 Mg/Ml Vial) 0.04 mg IVPUSH Q5M PRN PRN Reason: Excessive sedation or RR < 8 Ondansetron HCl (Ondansetron Hcl 4 Mg/2 Ml Vial) 4 mg IVPUSH Q8H PRN PRN Reason: Nausea and Vomiting Oxycodone HCl (Oxycodone Hcl Immed Release 5 Mg Tablet) 5 mg PO Q4H PRN PRN Reason: Pain, Moderate(Pain Scale 4-6) Last Admin: 10/05/24 07:46 Dose: 5 mg Documented By: SALOME Pharmacy Consult (Consult Rx Vancomycin Dosing) 1 each MISCELLANE DAILY PRN PRN Reason: Consult order Sodium Chloride (0.9 % Sodium Chloride Flush 3 Ml Syringe) 3 ml IVFLUSH [facility] Last Admin: 10/05/24 07:47 Dose: Not Given Documented By: SALOME Non-Admin Reason: IV Running Valacyclovir HCl (Valacyclovir Hcl 1,000 Mg Tablet) 1,000 mg PO BID [facility] Last Admin: 10/05/24 07:46 Dose: 1,000 mg Documented By: SALOME Labs 10/04/24 05:34 10/05/24 05:33 Labs: Laboratory Results - last 24 hr 10/04/24 10/05/24 12:12 05:33 Anion Gap 13 Estim Creat Clear Calc 132.2 Estimated GFR > 60 Random Glucose 163 H Calcium 8.3 L Magnesium 2.0 Random Vancomycin 7.4 L Microbiology Microbiology Results: Microbiology 10/04/24 16:17 Gram Stain - Final Finger Right Index Routine Culture - Preliminary No growth to date. 10/03/24 02:33 Blood Culture - Preliminary Blood - Venous No growth after 48 hours. 10/03/24 02:33 Blood Culture - Preliminary Blood - Venous No growth after 48 hours. Assessment and Plan (1) Cellulitis of hand: Status: Acute Plan d3 for 44yo M with polysubstance abuse [fentanyl, cocaine, benzodiazepines] admitted for hand infection; initially presented 10/02 but left AMA to dispose of illicit drugs, reportedly injured hand from cleaning a crack pipe R hand infection - Ortho consulted, POD1 I+D/debridement of R dorsal hand infection/R 4th finger paronychia/R 2nd finger abscess, continue vancomycin + piperacillin-tazobactam 10/03-, BCx negative, wound cultures pending mild rhabdomyolysis - due to cocaine/crack abuse; CPK stable acute toxic encephalopathy due to polysubstance abuse - Addiction Medicine consulted, declines MAT, HBV immune, HCV negative, HIV negative VTE ppx - enoxaparin dispo - eventual home In my clinical judgment, the patient requires continued inpatient hospitalization for the following reasons: IV ABX, postop care Total time managing care of this patient today: 35 minutes. Quality Stroke Does the patient have a stroke diagnosis?: No VTE Prior VTE?: No VTE Risk Level:: Medical - moderate - high VTE Device Contraindication: Treatment Not Indicated VTE Drug Contraindication: N/A - Med Ordered
--- NOTE | 2024-10-05 12:44 | MHC.CM.PN ---
Addendum entered by Jessica Contreras RN 10/05/24 12:55: Patient also plans to ask his friend if he can stay w/ her temporarily while requiring wound care. He will f/u w/ CM. Original Note: Per MD rounds patient not medically cleared for dc. Potential dc tomorrow on PO abx. CM met with patient to discuss plan for wound care. Patient reports he is currently sleeping on the streets. Discussed jail placement. He declines [facility] on [facility]. Reports he would rather sleep in the street and is aware another jail will likely not have an open bed. He was provided a jail list and will make phone calls in the morning. Also provided resource guide. Per carlos STONE, will need daily dressing changes. Patient reports he has a friend that he will visit daily who can change the dressing. He was also provided w/ schedule for [employer], in case the friend is unable to assist some days. He will be sent home w/ dressing supplies. *If patient does agree to [facility], CM will need to call Karon CALIXTO after 9am @ [phone].
--- NOTE | 2024-10-05 13:41 | HO.POSTANES ---
Post Anesthesia Evaluation Post Anesthesia Evaluation Date of Service: 10/05/24 Vital Signs: Vital Signs Temp Pulse Resp BP Pulse Ox O2 Del Method 10/05/24 11:34 98.3 F 72 18 125/85 96 Room Air 10/05/24 07:32 98.9 F 72 17 129/84 97 Room Air 10/05/24 03:46 98.0 F 65 17 120/62 95 Room Air Anesthesia: General Mental Status: Awake Pain Control: Satisfactory Nausea/Vomiting: None Hydration: Adequate Anesthesia-Related Issues: No Anes. Related Issues
--- NOTE | 2024-10-05 15:28 | PM.PNORT ---
Subjective Subjective Date of Service: 10/05/24 Interval history: Postop day 1 status post I and D of the left hand Patient resting comfortably in bed this afternoon Pain well managed No acute events overnight No other acute complaints or concerns at this time Physical Exam Vital Signs: Vital Signs: Last Vital Signs Temp 98.3 F 10/05/24 11:34 Pulse 72 10/05/24 11:34 Resp 18 10/05/24 11:34 BP 125/85 10/05/24 11:34 Pulse Ox 96 10/05/24 11:34 O2 Del Method Room Air 10/05/24 11:34 O2 Flow Rate 6 10/04/24 17:00 BMI result Body Mass Index 26.1 Extrem: Other: Dressing on left hand clean, dry, intact Once dressing is removed, erythema has improved since yesterday Wounds are still draining, no evidence of active purulent discharge at this time No evidence of surrounding erythema, ecchymosis No evidence of infection Patient is able to flex and extend the digits of the left hand partially, still unable to make a closed fist at this time Compartments soft, nontender Distal sensation intact Capillary refill brisk Procedures Date of Service Date of Service: 10/05/24 Progress Note: A&P Assessment and plan (1) Abscess of hand, left: Status: Acute Plan 1. Status post I and D of the left hand Continue IV antibiotics Daily dressing changes per nursing Consult OT for range of motion and strengthening of the left hand Continue IV antibiotics for at least 1 more day, discharge on p.o. antibiotics Follow-up with orthopedic hand surgery upon discharge, appointment booked for 10/09/24 for wound check Daily dressing changes once home Continue with all recommendations per Medicine Time Spent With Patient Time: Total time managing care of this patient today ____ minutes. Quality Stroke Does the patient have a stroke diagnosis?: No VTE Prior VTE?: No VTE Risk Level:: Medical - moderate - high VTE Device Contraindication: Treatment Not Indicated VTE Drug Contraindication: N/A - Med Ordered
[2024-10-05] MEDS: 0.9 % Sodium Chloride Flush 3 ML SYRINGE IVFLUSH ×2 (15:54→21:31)
[2024-10-05] MEDS: Enoxaparin Sodium 40 MG/0.4 ML SYRINGE SUBCUT (18:18)
[2024-10-05 20:49] LABS: Vancomycin Random 12.8 mcg/mL (15-20)
[2024-10-05] MEDS: vancomycin HCL 1,500 MG in 0.9 % Sodium Chloride 500 ML 333.33 MG IV (21:29)
[2024-10-06] MEDS: Piperacillin Sodium/Tazobactam 3.375 GM in 0.9 % Sodium Chloride 50 ML IV ×2 (01:02→08:13)
--- NOTE | 2024-10-06 02:30 | PC.NURSE ---
This RN assumed care last night at 1900, Pt AOx4, calm and cooperative, reported 8/10 pain to R hand, ANGELICA wrap CDI, no edema noted, full sensation to hand and fingers, <2 cap refill. Lung sounds clear, respirations even and non-labored, BSx4, no pain with palpation, denies anxiety/CP/SOB. Pt resting comfortable in bed eating snacks, Meds given per MAR. VSS, Call lam within reach, Will continue to reassess.
[2024-10-06 03:37] VITALS: BP 120/76; PULSE 66; RESP 18; TEMP 36.1; O2SAT 96
[2024-10-06] MEDS: vancomycin HCL 1,500 MG in 0.9 % Sodium Chloride 500 ML 333.33 MG IV (05:48)
[2024-10-06 06:51] LABS: Creatinine Clr Calc Pharmacy 130.4; Estimated Glomerular Filt Rate > 60
[2024-10-06 07:55] VITALS: BP 133/94; PULSE 70; RESP 18; TEMP 36.4; O2SAT 94
[2024-10-06 08:00] VITALS: PULSE 70
[2024-10-06] MEDS: valACYclovir HCL 1,000 MG TABLET 1000 MG PO (08:13)
[2024-10-06 11:35] VITALS: BP 129/90; PULSE 71; RESP 16; TEMP 36.4; O2SAT 97
--- NOTE | 2024-10-06 11:38 | PM.DS ---
DS: Providers Provider Date of Service: 10/06/24 Date of admission: 10/03/24 01:53 Date of discharge: 10/06/24 Primary care physician: Unknown Physician Consults: 10/03/24 01:53 Addiction Medicine Provider Routine Consulting Provider: Addiction Covering Reason for consultation: polysusbtance use disorder 10/03/24 02:58 Consult to Orthopedics Routine Consulting Provider: [facility] [place] [facility] Reason for consultation: tenosynovitis 10/03/24 10:41 Consult to Wound Care Routine Reason for consultation: R hand swelling Has provider been notified: Yes 10/06/24 00:18 Consult to Wound Care Routine Reason for consultation: s/P I&D to R hand abscess DS: Diagnosis Discharge Diagnosis (1) Infection of right hand: Status: Acute (2) Paronychia of finger of right hand: Status: Acute (3) Abscess of finger: Status: Acute (4) Cocaine use disorder: Status: Acute (5) Polysubstance abuse: Status: Inactive (6) Primary HSV infection of mouth: Status: Acute DS: Summary Hospital Course Hospital Course: From the history and physical by the admitting hospitalist, Radha Lei MD, 10/02/24: This has a 44-year-old male with pertinent history of polysubstance use disorder who presents to the emergency department for concerns of hand infection. Patient initially presented on the morning of 10/02 to the ER with concerns of right hand swelling and infection. Patient was offered admission for IV antibiotics but left AMA and returned late night 10/02 to the ER. Unable to obtain history from the patient as he is only eye opening to painful stimulus at the time of my evaluation. Patient received diazepam, Benadryl, Geodon, Ativan prior to my evaluation due to agitation. History obtained from ER provider and chart review. Patient admitted that he had illicit drugs with him and he left the hospital against medical advice to dispose time. Patient denied IV use to the ER provider but admitted to using illicit drugs. He states he injured his right hand from cleaning a crack pipe and getting script in the hand with a piece of wood. Unable to obtain review of systems. In the emergency department, patient was found to have leukocytosis and UDS positive for opiates, fentanyl, cocaine, benzos and marijuana. 44yo M with polysubstance abuse [fentanyl, cocaine, benzodiazepines] admitted for hand infection; initially presented 10/02 but left AMA to dispose of illicit drugs, reportedly injured hand from cleaning a crack pipe. He was admitted to the medical-surgical unit with Orthopedics consultation. On 10/04, he underwent I+D/debridement of R dorsal hand infection/R 4th finger paronychia/R 2nd finger abscess by Dr Andra Montaño. He was treated with 3 days of vancomycin and piperacillin-tazobactam. Blood and wound cultures negative and he was discharged on doxycycline plus amoxicillin-clavulanate for 7 days. He should follow up with Orthopedics in 1 week. Addiction Medicine was consulted and the patient declined MAT. HCV and HIV screens negative. He was treated with valcyclovir for oral HSV infection. Time Attestation Discharge Coordination Time (in mins): 40 Quality: Safe Use of Opioids Does Pt have an Active Cancer Diagnosis on the Problem List?: No Quality: Stroke Does the patient have a stroke diagnosis?: No Physical Exam Vital Signs: Vital Signs: Last Vital Signs Temp 97.5 F 10/06/24 11:35 Pulse 71 10/06/24 11:35 Resp 16 10/06/24 11:35 BP 129/90 H 10/06/24 11:35 Pulse Ox 97 10/06/24 11:35 O2 Del Method Room Air 10/06/24 11:35 O2 Flow Rate 6 10/04/24 17:00 BMI result Body Mass Index 26.1 Gen: NAD HEENT: sclera anicteric, moist mucus membranes Neck: supple Lungs: clear to auscultation bilaterally Heart: regular rate and rhythm, no murmurs Abd: soft, non-tender, non-distended Ext: R hand with minimal erythema around wounds, no fluctuance; able to flex and extend digits; normal sensation and capillary refill distally Skin: warm/well-perfused Neuro: alert and oriented, moving all extremities Psych: appropriate affect DS: Data Data Completed and Pending Completed studies during hospitalization [Text1]: Laboratory Results WBC 8.7 X10*3/uL (4.8-10.8) 10/04/24 05:34 RBC 3.62 X10*6/uL (4.60-5.80) L 10/04/24 05:34 Hgb 11.2 g/dl (14.0-18.0) L 10/04/24 05:34 Hct 32.9 % (42.0-52.0) L 10/04/24 05:34 MCV 90.9 fL (80.0-98.0) 10/04/24 05:34 MCH 30.9 pg (27.0-33.0) 10/04/24 05:34 MCHC 34.0 g/dl (31.0-36.0) 10/04/24 05:34 RDW 12.6 % (11.0-16.0) 10/04/24 05:34 Plt Count 186 X10*3/uL (160-400) 10/04/24 05:34 MPV 10.5 fL (9.4-12.4) 10/04/24 05:34 Immature Gran % (Auto) 0.3 % (0.0-0.4) 10/04/24 05:34 Neut % (Auto) 66.0 % (45-73) 10/04/24 05:34 Lymph % (Auto) 24.1 % (20-40) 10/04/24 05:34 Warrick % (Auto) 6.4 % (2-11) 10/04/24 05:34 Eos % (Auto) 3.0 % (0-4) 10/04/24 05:34 Baso % (Auto) 0.2 % (0-2) 10/04/24 05:34 Lymph # (Auto) 2.1 X10*3/uL (1.2-4.9) 10/04/24 05:34 Warrick # (Auto) 0.6 X10*3/uL (0.1-1.2) 10/04/24 05:34 Eos # (Auto) 0.3 X10*3/uL (0.0-0.4) 10/04/24 05:34 Baso # (Auto) 0.0 X10*3/uL (0.0-0.2) 10/04/24 05:34 Abs Immat Gran (auto) 0.03 X10*3/uL (0.00-0.03) 10/04/24 05:34 Absolute Neuts (auto) 5.7 x10*3/uL (2.0-8.3) 10/04/24 05:34 Absolute Nucleated RBC 0.000 X10*3/uL (0.0-0.012) 10/04/24 05:34 Nucleated RBC % (auto) 0.0 /100WBC (0.0-0.2) 10/04/24 05:34 Hold Purple Top SEE NOTE 10/06/24 06:18 Sodium 141 mmol/L (135-145) 10/05/24 05:33 Potassium 3.6 mmol/L (3.3-5.1) 10/05/24 05:33 Chloride 106 mmol/L (96-108) 10/05/24 05:33 Carbon Dioxide 26 mmol/L (22-29) 10/05/24 05:33 Anion Gap 13 (12-20) 10/05/24 05:33 BUN 13 mg/dL (9-16) 10/05/24 05:33 Creatinine 0.73 mg/dL (0.5-1.4) 10/06/24 06:18 Estim Creat Clear Calc 130.4 10/06/24 06:18 Estimated GFR > 60 10/06/24 06:18 Random Glucose 163 mg/dL (60-115) H 10/05/24 05:33 Lactic Acid 0.6 mmol/L (0.5-2.0) 10/03/24 02:33 Calcium 8.3 mg/dL (8.4-10.2) L 10/05/24 05:33 Magnesium 2.0 mg/dL (1.6-2.6) 10/05/24 05:33 Total Bilirubin 0.6 mg/dL (0.0-1.0) 10/03/24 02:33 AST 29 U/L (5-37) 10/03/24 02:33 ALT 16 U/L (0-40) 10/03/24 02:33 Alkaline Phosphatase 56 U/L (39-117) 10/03/24 02:33 Total Creatine Kinase 478 U/L (38-174) H 10/04/24 05:34 Total Protein 6.4 g/dL (6.5-8.0) L 10/03/24 02:33 Albumin 3.5 g/dL (3.5-5.0) 10/03/24 02:33 Hold Yellow Top See Note 10/06/24 06:18 Random Vancomycin 12.8 mcg/mL (15-20) L 10/05/24 20:23 Hep Bs Antigen Negative (Negative) 10/04/24 05:34 Hep Bs Antibody REACTIVE (Nonreactive) 10/04/24 05:34 Hep B Core Total Ab Nonreactive (Nonreactive) 10/04/24 05:34 Hepatitis C Ab (EIA) Nonreactive (Nonreactive) 10/04/24 05:34 HIV 1&2 Ab/P24 Ag 4thGn Nonreactive (Nonreactive) 10/04/24 05:34 Discharge Plan Discharge Anticipated Discharge Date/Time: 10/06/24 14:33 Patient Disposition: Home, Self-Care Discharge Diagnosis: hand infection Referrals: Kennedy Woodruff PA [Physician Solar Engineer] - 1 Week (10/09/24 09:15 [facility] [place] [facility] Sur[facility] Kennedy Woodruff PA) Physician,Ward J [Primary Care Provider] - 1 Week Discharge Medications: New valacyclovir 1 gram Tablet 1,000 mg PO BID Qty: 10 0RF doxycycline monohydrate 100 mg tablet 100 mg PO BID Qty: 14 0RF amoxicillin-pot clavulanate 875-125 mg tablet 1 tab PO BID Qty: 14 0RF Discharge Orders: Discharge Order (Routine); Ordered 10/06/24 Ordered By: Tessie Petit Diet: Advance to usual diet Activity on Discharge: As tolerated Stand Alone Forms: Patient Portal Discharge page Print Language: Bruneian Activity Restrictions/Additional Instructions: Daily dressing changes at home with antibiotic ointment, gauze, Cob[place] Also change dressings as needed for saturation Keep left hand clean, dry, intact Have dressed at all times Follow-up with orthopedics on 10/09/[address] [place] [address] Care Plan Goals: cure of infection Health Concerns: hand infection Plan of Treatment: take doxycycline monohydrate 100 mg twice daily PLUS amoxicillin-clavulanate 100 mg twice daily for 7 days follow up with Orthopedics as above for cold sore, take valacylovir 1 gram twice daily for 5 days Please follow up with your primary care doctor within 1 week. Return to the hospital if you experience recurrent or worsening symptoms. Assessment: See Discharge Summary.
--- NOTE | 2024-10-06 12:11 | PC.NURSE ---
Discharge orders received, patient is requesting to leave [place], dressing to the R hand changed per ortho orders, patient was given extra supplies, and escorted to the main entrance.
--- NOTE | 2024-10-06 12:23 | MHC.CM.PN ---
PT CLEARED TO [place] TODAY CM MET WITH PT TO DISCUSS DC PLANNING HE AGAIN DECLINES A [facility] REFERRAL HE IS AWARE HE WILL BE GIVEN DRESSING SUPPLIES [place] HE ALSO CONFIRMS HE HAS THE [employer] [facility]ANS SCHEDULE AND WILL UTILIZE IT PT REPORTS HE WILL BE GOING TO THE [facility] [place], [facility] TRANSPORT ARRANGED
--- NOTE | 2024-10-16 14:50 | P.CDIM_ITS ---
PROVIDER RESPONSE TEXT: To clarify, the appropriate diagnosis supported by the clinical indicators: Sepsis is/was present: resolved QUERY TEXT: PHYSICIAN'S DOCUMENTATION REQUEST Date of Query: 10/12/2024 11:37 AM EDT Patient Name: BRIAN WILKS Admit Date: 10/03/2024 Dear Tessie Petit MD, RETROSPECTIVE QUERY A review of the medical record indicates additional documentation may be needed. Please review below and update the documentation accordingly. Clinical indicators: H&P 10/03/24 - Sepsis due to right hand cellulitis with imaging concerning for tenosynovitis: Will admit patient with IV Vancomycin and Ceftriaxone. Resuscitated with IV crystalloids. WBC 17.8 LA 1.8 TEMP 98.2 HR 105 RR 22 Discharge summary 10/06/24 - Infection of right hand, R 4th finger paronychia, R 2nd finger abscess. I&D performed. Micro - Streptococcus pyogenes Grp A Sepsis Systemic manifestations of infection, with 2 or more SIRS criteria which include: Fever > 100.4?F or hypothermia < 96.8?F Leukocytosis - WBC > 12,000 or leukopenia, WBC < 4,000, or > 10% bands Tachycardia- > 90 beats/minute Tachypnea- RR > 20 breaths/minute or PaCO2 < 32mmHg Sepsis is/was present possible, resolved, suspected etc. After study Sepsis has been ruled out Other (explain) Clinically unable to determine (explain) Thank you, Adriana Connell, CCS, CDIS Use of terms such as suspected, likely, concern for, or probable (associated with a specific diagnosi s that is being evaluated, monitored, or treated as if it exists) are acceptable and can be coded in the inpatient se tting, when documented at the time of discharge. Please use your independent medical judgment in providing your response. THIS QUERY IS PART OF THE PERMANENT MEDICAL RECORD
== END 2024-10-06 12:20 | disposition home or self-care (01) | DRG 710 ==
LOC: HO.ED 10-03 01:56 → HO.EDOVER 10-03 02:10 → HO.S3 10-03 02:46
PROVIDERS: Orthopaedic Surgery; Admitting Provider Student in an Organized Health Care Education/Training Program; Emergency Provider Emergency Medicine; PCP Student in an Organized Health Care Education/Training Program; Visit Provider Family Medicine
PROC: 0JBJ0ZZ Excision of Right Hand Subcutaneous Tissue and Fascia, Open Approach (ICD-10-PCS; CPT 26011; principal; 2024-10-04 15:50)
DX: A41.9 Sepsis, unspecified organism (principal); G92.9 Unspecified toxic encephalopathy; M62.82 Rhabdomyolysis; L03.113 Cellulitis of right upper limb; F11.10 Opioid abuse, uncomplicated; F13.10 Sedative, hypnotic or anxiolytic abuse, uncomplicated; L02.511 Cutaneous abscess of right hand; F19.90 Other psychoactive substance use, unspecified, uncomplicated; F14.10 Cocaine abuse, uncomplicated; B00.2 Herpesviral gingivostomatitis and pharyngotonsillitis; E87.6 Hypokalemia; F17.210 Nicotine dependence, cigarettes, uncomplicated; Z71.6 Tobacco abuse counseling; Z79.899 Other long term (current) drug therapy
CPT/HCPCS: 26011; 10060; 36415; 73201; 80048; 80053; 80202; 82550; 82565; 83605; 83735; 85025; 86704; 86706; 86803; 87040; 87070; 87147; 87205; 87340; 87389; 99221; 99285; J0131; J1100; J1171; J1200; J1650; J1885; J2003; J2004; J2250; J2405; J2543; J2704; J3010; J3360; J3370; J3371; J3480; J3486; J7120; Q9967

== ENCOUNTER → 2024-10-03 01:53 | Outpatient (BNV) | payer MEDICAID, SELFPAY | PROVIDERS: Admitting Provider Student in an Organized Health Care Education/Training Program; Emergency Provider Emergency Medicine; Visit Provider Student in an Organized Health Care Education/Training Program | DX: L03.113 Cellulitis of right upper limb (principal) | CPT/HCPCS: 99223; 99232; 99239; 99499 ==

== ENCOUNTER → 2024-10-03 01:53 | Outpatient (BNV) | payer OTHER, SELFPAY | PROVIDERS: Admitting Provider Student in an Organized Health Care Education/Training Program; Emergency Provider Emergency Medicine; Visit Provider Nurse Practitioner Psychiatric/Mental Health | DX: F14.10 Cocaine abuse, uncomplicated (principal) | CPT/HCPCS: 99221 ==

== ENCOUNTER → 2024-10-03 01:53 | Outpatient (BNV) | payer MEDICAID, SELFPAY | PROVIDERS: Admitting Provider Student in an Organized Health Care Education/Training Program; Emergency Provider Emergency Medicine | DX: L03.119 Cellulitis of unspecified part of limb (principal); L02.512 Cutaneous abscess of left hand | CPT/HCPCS: 99223 ==

== ENCOUNTER → 2024-10-03 | Outpatient (BNV) | payer MEDICAID, SELFPAY | PROVIDERS: Admitting Provider Student in an Organized Health Care Education/Training Program; Emergency Provider Emergency Medicine; Visit Provider Radiology Diagnostic Radiology | DX: L98.9 Disorder of the skin and subcutaneous tissue, unspecified (principal) | CPT/HCPCS: 73201 ==

== ENCOUNTER 2024-10-12 01:11 | Emergency (ER) | payer OTHER, SELFPAY ==
[2024-10-12 01:15] VITALS: BP 141/95; PULSE 86; RESP 18; TEMP 35.6; O2SAT 100; BMI 25.1
--- NOTE | 2024-10-12 01:37 | ED.OVERDOSE ---
HPI - Overdose General Chief Complaint: Overdose Stated Complaint: gen med Time Seen by Provider: 10/12/24 01:33 Source: patient Mode of arrival: ambulatory Limitations: no limitations History of Present Illness ED Provider: Dr. Lana Clarke HPI Narrative: Patient comes to the emergency room complaining of using crack cocaine heroin. Patient denies SI or HI. Patient states that truethfully, he is here because it is very cold outside, raining. patient denies any trauma. Related Data Previous Rx's ?Medication ?Instructions ?Recorded amoxicillin 875 mg-potassium 1 tab PO BID #14 tabs 10/06/24 clavulanate 125 mg tablet doxycycline monohydrate 100 mg 100 mg PO BID #14 tabs 10/06/24 tablet valacyclovir 1 gram tablet 1,000 mg PO BID #10 tabs 10/06/24 Allergies Allergy/AdvReac Type Severity Reaction Status Date / Time No Known Allergies Allergy Verified 10/12/24 01:18 [No Known Allergies*] Review of Systems Review of Systems: Constitutional : No Weight loss, No Fever, No Chills, No Night Sweats, No Fatigue, No Malaise, complaining of feeling cold, ENT/Mouth : No Hearing loss, No Ear Pain, No Nasal Congestion, No Sinus Pain, No Hoarseness, No sore throat, No Rhinorrhea, No Swallowing Difficulty Eyes: No Eye Pain, No Swelling, No Redness, No Foreign Body, No Discharge, No Vision Changes Cardiovascular : No Chest Pain, No SOB, No Dyspnea on Exertion, No Orthopnea, No Edema, No Palpitations Respiratory : No Cough, No Sputum, No Wheezing, No Smoke Exposure, No Dyspnea Gastrointestinal : No Nausea, No Vomiting, No Diarrhea, No Constipation, No abdominal Pain, No Hematochezia, No Melena Genitourinary : no irregular bleeding, No Dysuria, No Urinary Frequency, No Hematuria, No Urinary Incontinence, No Urgency, No Flank Pain, No Urinary Flow Changes, No Hesitancy Musculoskeletal : No joint pain, No Myalgias, No Joint Swelling Skin : No Skin Lesions, No rash Neuro : No Weakness, No Numbness, No Paresthesias, No Loss of Consciousness, No Dizziness, No Headache Psych : No Anxiety/Panic, No Depression, No SI/HI/AH/VH, Admits to polysubstance abuse, patient admits that he is homeless Heme/Lymph: No Bruising, No Bleeding,No Lymphadenopathy Endocrine : No Polyuria, No Polydipsia, No Temperature Intolerance [facility] Past Medical History Medical History Substance abuse Asthma Social History Social History Household Members Other:: unable to assess Housing Other:: unable to assess Alcohol intake: current Alcohol intake frequency: does not drink Patient Tobacco Use Status: Current everyday Tobacco user Substance Use Type: Crack/Cocaine and Heroin Do you have a plan to hurt others: No Plan service: No Physical Exam Vital Signs: Vital Signs: Last Vital Signs Temp 96.0 F L 10/12/24 01:15 Pulse 86 10/12/24 01:15 Resp 18 10/12/24 01:15 BP 141/95 H 10/12/24 01:15 Pulse Ox 100 10/12/24 01:15 O2 Del Method Room Air 10/12/24 01:15 BMI result Body Mass Index 25.1 Const: Other: Appearance: Alert. Oriented X3. No acute distress. Eyes: Pupils equal, round and reactive to light. ENT: Pharynx normal. Neck: Normal inspection. Neck supple. No lymph nodes noted. No crepitus CVS: Normal heart rate and rhythm. Pulses normal. Normal S1 and S2 Respiratory: No respiratory distress. Breath sounds normal. No Wheezing. No rales Abdomen: Soft and nontender. No rigidity. No distention. Skin: Skin warm and dry. Normal skin color. Normal skin turgor. Extremities: No lower extremity edema. No Lacerations. No Rash Neuro: Oriented X 3. No motor deficit. No sensory deficit. Moving all extremities. No slurred speech. CN 2 through 12 grossly intact Psych: calm, cooperative, normal affect Medical Decision Making Medical Decision Making MDM Narrative: patient is calm, cooperative, denies SI or HI. Patient reporting that he is here mostly for information about detox but mostly because he has no place to stay overnight. Given the ER conditions tonight, in permits for the patient to stay overnight. Patient agrees to be discharged in the morning without any behavioral difficulties. Discharge Plan Discharge Clinical Impression: Polysubstance abuse, Homeless Patient Disposition: Home, Self-Care Instructions: Polysubstance Use Disorder (ED) Additional Instructions: Opiate use disorder You were seen in our Emergency Department today for treatment of opiate use disorder. You may have been dosed with medication for opiate use disorder (MOUD) in the form of suboxone or methadone. You may experience feeling some withdrawal symptoms and this is normal. The? dose in the Emergency Department is a starting dose and meant to be titrated up once you follow up with a clinic. Please do not feel discouraged, it is a process. The nurse has reviewed with you where to follow up and what information to bring with you, to continue treatment. You also may have been given naloxone (narcan) to take home with you. This medication is used to potentially treat opiate overdose. If you decide you want to stop or cut down on how much you?re using, you can call or walk into our outpatient Addiction Treatment office: [facility] (M-F 9am-5p) [address], [address] [phone] You may have been provided with safer injection?items, please take time to take care of YOU and your health. Use new supplies whenever possible to lessen the chances of infections and other illnesses.? ?If you need more supplies, please go [facility],? [address] [place] [address] OR you can call or text to coordinate delivery of safer supplies. You were also provided a list of several treatment providers in the area.? If you experience any worsening symptoms you cannot control please return to the ED or call 911. Please follow up at your next appointment. Things to look out for are fevers, chest pain, shortness of breath, severe pain, dizziness, fainting or any other concerns. Prescriptions: No Action valacyclovir 1 gram Tablet 1,000 mg PO BID Qty: 10 0RF doxycycline monohydrate 100 mg tablet 100 mg PO BID Qty: 14 0RF amoxicillin-pot clavulanate 875-125 mg tablet 1 tab PO BID Qty: 14 0RF Print Language: Greek
[2024-10-12 05:28] VITALS: BP 144/88; PULSE 88; RESP 16; TEMP 36.6; O2SAT 98
== END 2024-10-12 05:30 | disposition home or self-care (01) ==
PROVIDERS: Emergency Provider Emergency Medicine
DX: T40.1X1A Poisoning by heroin, accidental (unintentional), initial encounter (principal); T40.5X1A Poisoning by cocaine, accidental (unintentional), initial encounter; Y92.9 Unspecified place or not applicable; F17.210 Nicotine dependence, cigarettes, uncomplicated; Z59.00 Homelessness unspecified; Z71.51 Drug abuse counseling and surveillance of drug abuser
CPT/HCPCS: 99284